=== PATIENT | female | born 1960 | race Two or more races ===

== ENCOUNTER 2024-03-01 19:12 | Inpatient (IN) | payer OTHER ==
[~2024-03-01] VITALS: Ht 162.6 cm; Wt 0.5 kg
[~2024-03-01 19:12] MED LIST: AMLODIPINE; CALTRATE 600+D1 EACH; CILOSTAZOL100 MG PO; COZAAR25 MG PO; FARXIGA10 MG PO; FOLIC ACID0.8 M1; GRALISE600 MG; HYDROCHLOROTHIA25 MG PO; INDERAL XL80 MG; KAPVAY0.1 MG; LANTUS SOL100 UNIT/1 SQ; OXYCODONE HCL10 M1; PEPCID AC20 MG PO; SIMVASTATIN80 MG; ZOFRAN8 MG PO
[2024-03-01 23:13] LABS: MEAN CELL VOLUME 96.3 fL (80.00-100.00); MEAN CORPUSCULAR HGB CONC 34.4 g/dl (32.0-36.0); PLATELET COUNT 177 K/uL (150-450); RED BLOOD COUNT 1.93 M/uL (4.00-6.00)
[2024-03-01 23:17] LABS: MEAN CORPUSCULAR HEMOGLOBIN 33.1 pg (27.00-32.0)
[2024-03-01 23:20] LABS: INR 0.99; PARTIAL THROMBOPLASTIN TIME 27.4 SECONDS (22.0-34.0); PROTHROMBIN TIME 10.4 SECONDS (9.0-11.5)
[2024-03-01 23:22] LABS: HEMOGLOBIN 6.4 g/dL (12.0-15.00)
[2024-03-01 23:23] LABS: HEMATOCRIT 18.6 % (36.0-45.00)
[2024-03-01 23:25] LABS: ALBUMIN 2.6 gm/dL (3.4-5.0); BILIRUBIN TOTAL 0.24 mg/dL (0.3-1.2); CALCIUM 7.9 mg/dL (8.5-10.1); CREATININE SERUM 2.44 mg/dL (0.55-1.02); GFR 20.14; GLOBULINA 4.3 G/DL (2.4-3.5); POTASSIUM 3.69 mEq/L (3.5-5.1); TOTAL PROTEIN 6.9 gm/dL (6.4-8.2)
[2024-03-02] MEDS ORDERED: CEFTRIAXONE SODIUM 2,000 MG in 0.9 % SODIUM CHLORIDE 100 ML IV SCH (00:05)
[2024-03-02] MEDS ORDERED: DEXTROSE 50 % IN WATER 0.5 G/ML DISP.SYRIN IV PRN (00:15)
[2024-03-02] MEDS ORDERED: ACETAMINOPHEN 500 MG GEL..CAP PO PRN (00:15)
[2024-03-02] MEDS ORDERED: FUROsemide 20 MG/2 ML VIAL IV SCH (00:15)
[2024-03-02] MEDS ORDERED: INSULIN LISPRO 1,000 UNIT/10 ML UNITS SUBCUTANEO PRN (00:15)
[2024-03-02] MEDS ORDERED: CEFTRIAXONE SODIUM 2,000 MG VIAL ONE (01:43)
[2024-03-02 01:57] LABS: URINE APPEARANCE Clear; URINE BILIRRUBIN Negative (NEGATIVE); URINE BLOOD Negative; URINE COLOR Yellow; URINE LEUKOCYTE Negative; URINE NITRATE Negative; URINE PROTEIN Trace (NEGATIVE); URINE UROBILINOGEN 0.2 E.U./dl
[2024-03-02 02:01] LABS: URINE BACTERIA 645.9 uL (0.0-1933); URINE EPITHELIAL CELLS 4.9 uL (0.0-38.8); URINE WBC 3.8 uL (0.0-23.2)
[2024-03-02 02:11] LABS: URINE GLUCOSE >=1000 MG/DL (NEGATIVE); URINE RBC 1.2 uL (0.0-20.8)
[2024-03-02] MEDS ORDERED: FARXIGA 10 MG PO SCH (09:00)
[2024-03-02] MEDS ORDERED: LOSARTAN POTASSIUM 25 MG TABLET PO SCH (09:00)
[2024-03-02] MEDS ORDERED: FAMOTIDINE/PF 20 MG in 0.9 % SODIUM CHLORIDE 8 ML IV PUSH SCH (09:00)
[2024-03-02] MEDS ORDERED: PROPRANOLOL HCL 20 MG TABLET PO SCH (09:00)
[2024-03-02] MEDS ORDERED: AMLODIPINE BESYLATE 5 MG TABLET PO SCH (12:00)
[2024-03-02] MEDS ORDERED: 0.9 % SODIUM CHLORIDE 1,000 ML IV SCH (23:45)
[2024-03-03 10:52] LABS: HEMATOCRIT 29.1 % (36.0-45.00); MEAN CELL VOLUME 89.6 fL (80.00-100.00); MEAN CORPUSCULAR HGB CONC 34.5 g/dl (32.0-36.0); PLATELET COUNT 146 K/uL (150-450); RED BLOOD COUNT 3.25 M/uL (4.00-6.00); RED CELL DISTRIBUTION WIDTH 20.6 % (11.5-14.5)
[2024-03-03 10:53] LABS: MEAN CORPUSCULAR HEMOGLOBIN 30.7 pg (27.00-32.0)
[2024-03-04] MEDS ORDERED: VANCOMYCIN HCL 1,000 MG VIAL IV NR (13:30)
[2024-03-04 16:57] LABS: BILIRUBIN TOTAL 0.36 mg/dL (0.3-1.2); CREATININE SERUM 2.15 mg/dL (0.55-1.02); GFR 23.3; GLOBULINA 4.1 G/DL (2.4-3.5); POTASSIUM 3.78 mEq/L (3.5-5.1); TOTAL PROTEIN 7.1 gm/dL (6.4-8.2)
[2024-03-05] MEDS ORDERED: VANCOMYCIN HCL 1,000 MG VIAL IV SCH (12:00)
[2024-03-06] MEDS ORDERED: OxyCODONE HCL/APAP UD (PERCOCET) PO PRN (13:00)
[2024-03-07 07:27] LABS: HEMATOCRIT 27.6 % (36.0-45.00); HEMOGLOBIN 9.7 g/dL (12.0-15.00); MEAN CELL VOLUME 87.9 fL (80.00-100.00); MEAN CORPUSCULAR HEMOGLOBIN 30.8 pg (27.00-32.0); RED BLOOD COUNT 3.14 M/uL (4.00-6.00)
[2024-03-07 08:31] LABS: ALBUMIN 2.7 gm/dL (3.4-5.0); CREATININE SERUM 1.85 mg/dL (0.55-1.02); GFR 27.71; PHOSPHOROUS 2.6 mg/dL (2.5-4.9); POTASSIUM 3.78 mEq/L (3.5-5.1)
[2024-03-07 08:57] LABS: CALCIUM 6.5 mg/dL (8.5-10.1)
[2024-03-07 09:00] LABS: PLATELET COUNT 125 K/uL (150-450)
[2024-03-08] MEDS ORDERED: FAMOtidine 20 MG TABLET PO SCH (09:00)
== END 2024-03-08 15:09 | disposition home or self-care (01) | DRG 181 ==
LOC: ER 19:12 → SURH 03-02
PROVIDERS: Emergency Medicine; General Practice; Internal Medicine Nephrology; ADMIT Internal Medicine; ATTEND Internal Medicine
PROC: 30233N1 Transfusion of Nonautologous Red Blood Cells into Peripheral Vein, Percutaneous Approach (ICD-10-PCS; principal; 2024-03-02)
DX: C34.91 Malignant neoplasm of unspecified part of right bronchus or lung (principal); C77.1 Secondary and unspecified malignant neoplasm of intrathoracic lymph nodes; C79.51 Secondary malignant neoplasm of bone; N17.9 Acute kidney failure, unspecified; L98.498 Non-pressure chronic ulcer of skin of other sites with other specified severity; L02.214 Cutaneous abscess of groin; L73.2 Hidradenitis suppurativa; D64.89 Other specified anemias; D63.1 Anemia in chronic kidney disease; D63.0 Anemia in neoplastic disease; I12.9 Hypertensive chronic kidney disease with stage 1 through stage 4 chronic kidney disease, or unspecified chronic kidney disease; E11.22 Type 2 diabetes mellitus with diabetic chronic kidney disease; N18.9 Chronic kidney disease, unspecified; Z79.4 Long term (current) use of insulin; Z87.891 Personal history of nicotine dependence; Z92.21 Personal history of antineoplastic chemotherapy; B95.1 Streptococcus, group B, as the cause of diseases classified elsewhere

== ENCOUNTER 2024-05-29 10:49 | Inpatient (IN) | payer OTHER ==
[~2024-05-29] VITALS: Ht 147.3 cm; Wt 63.5 kg
--- NOTE | 2024-05-29 11:16 | NUR ---
PACIENTE ALERTA Y ORIENTADA X 3. REFIERE DESDE KRYSTAL CON DOLOR EN LADO DERECHO DE LA [place] Y DESDE GONZALEZ VOMITOS. HOY VOMITOS X 7.
[2024-05-29] MEDS ORDERED: JARDIANCE25 MG PO (11:25)
[2024-05-29] MEDS ORDERED: 0.9 % SODIUM CHLORIDE 1,000 ML IV STA (12:13)
[2024-05-29] MEDS ORDERED: NIFEDIPINE 20 MG CAPSULE PO STA (12:13)
[2024-05-29] MEDS ORDERED: ORPHENADRINE CITRATE 30 MG/ML AMPUL IV STA (12:15)
[2024-05-29 12:44] LABS: HEMATOCRIT 30.9 % (36.0-45.00); HEMOGLOBIN 10.6 g/dL (12.0-15.00); MEAN CELL VOLUME 94.6 fL (80.00-100.00); MEAN CORPUSCULAR HEMOGLOBIN 32.3 pg (27.00-32.0); MEAN CORPUSCULAR HGB CONC 34.1 g/dl (32.0-36.0); PLATELET COUNT 408 K/uL (150-450); RED BLOOD COUNT 3.27 M/uL (4.00-6.00); RED CELL DISTRIBUTION WIDTH 17.9 % (11.5-14.5)
--- NOTE | 2024-05-29 13:05 | NUR ---
SE EDUCA PACIENTE Y FAMILIAR SOBRE EL [place] MEDICO Y ESTA REFIERE ENTENDER. SE CANALI[place] Y SE ADMINITRA MEDICAMENTOS. SE YOLANDA MUESTRAS DE LABORATORIOS Y SE ENTREGA ENVASE DE U/A. PENDINETE A CT SCAN DE KRISHNA
[2024-05-29 13:40] LABS: ALBUMIN 3.5 gm/dL (3.4-5.0); ALKALINE PHOSPHATASE 109 U/L (50-136); ALT/SGPT 19 U/L (12-78); ANION GAP 13 (10.0-20.0); AST/SGOT 17 U/L (15-37); BILIRUBIN TOTAL 0.31 mg/dL (0.3-1.2); BILIRUBIN,CONJUGATED < 0.10 mg/dL (0.0-0.2); BILIRUBIN,UNCONJUGATED 0.21 mg/dL (0.0-0.6); BLOOD UREA NITROGEN 55 mg/dL (7-18); BUN CREA RATIO 23 (7.0-25.0); CALCIUM 9.3 mg/dL (8.5-10.1); CARBON DIOXIDE 21 mEq/L (21-32); CHLORIDE 110 mmol/L (98-107); CREATININE SERUM 2.44 mg/dL (0.55-1.02); GFR 20.14; GLUCOSE FASTING 109 mg/dL (65-100); OSMOLALITY SERUM 295 MOSM/KG (275-295); POTASSIUM 4.34 mEq/L (3.5-5.1); SODIUM 140 mmol/L (136-145); TOTAL PROTEIN 8.3 gm/dL (6.4-8.2)
[2024-05-29] MEDS ORDERED: METOCLOPRAMIDE HCL 5 MG/ML VIAL IV ONE (13:45)
[2024-05-29] MEDS ORDERED: FAMOtidine 10 MG/ML (4ML VIAL) IV ONE (13:45)
[2024-05-29] MEDS ORDERED: KETOROLAC TROMETHAMINE 30 MG VIAL IV ONE (13:45)
[2024-05-29] MEDS ORDERED: ONDANSETRON HCL 2 MG/ML VIAL IV ONE ×2 (13:45→17:15)
[2024-05-29] MEDS ORDERED: PROMETHAZINE HCL 50 MG/ML AMPUL IM ONE (15:00)
[2024-05-29 15:16] LABS: PH,URINE 5.5 (5.0-8.0); URINE APPEARANCE Clear; URINE BILIRRUBIN Negative (NEGATIVE); URINE BLOOD Negative; URINE COLOR Yellow; URINE KETONE Negative (NEGATIVE); URINE LEUKOCYTE Negative; URINE NITRATE Negative; URINE PROTEIN 30 (NEGATIVE); URINE UROBILINOGEN 0.2 E.U./dl
[2024-05-29 15:20] LABS: URINE BACTERIA 327.4 uL (0.0-1933); URINE CAST 1.67 uL (0.0-1.40); URINE RBC 2.9 uL (0.0-20.8); URINE WBC 7.1 uL (0.0-23.2)
[2024-05-29 15:30] LABS: URINE GLUCOSE >=1000 MG/DL (NEGATIVE)
[2024-05-29] MEDS ORDERED: cloNIDine HCL 0.3 MG TABLET PO STA (15:31)
--- NOTE | 2024-05-29 15:39 | NUR ---
PACIENTE FEMENINA ALERTA Y ORIENTADA X3 EN TJ #13 CON BARANDAS ELEVADAS. AREA DE VENOPUNCION PATENTE EL DE EDEMA Y ENROJECIMIENTO. SE LE YOLANDA LOS SIGNOS VITALES Y SE LE ADMINISTRA MEDICAMENTOS GÓMEZ LAS ORDENES. SE LE [place] EN TODO MOMENTO PRIVACIDAD Y SEGURIDAD.
--- NOTE | 2024-05-29 17:08 | NUR ---
SE NOTIFICA A B/P:150/100MMHG. AL MOMENTO NO INDICA [place] MEDICO.
[2024-05-29] MEDS ORDERED: PANTOPRAZOLE SODIUM 40 MG/VIAL VIAL IV ONE (18:30)
[2024-05-29] MEDS ORDERED: ONDANSETRON HCL 4 MG in 0.9 % SODIUM CHLORIDE 50 ML IV PRN (20:45)
[2024-05-29] MEDS ORDERED: DEXTROSE 50 % IN WATER 0.5 G/ML DISP.SYRIN IV PRN (20:45)
[2024-05-29] MEDS ORDERED: ACETAMINOPHEN 325 MG TABLET PO PRN (20:45)
[2024-05-29] MEDS ORDERED: INSULIN LISPRO 1,000 UNIT/10 ML UNITS SUBCUTANEO PRN (20:45)
[2024-05-29] MEDS ORDERED: 0.9 % SODIUM CHLORIDE 1,000 ML IV SCH (20:45)
[2024-05-29] MEDS ORDERED: BUTALB/ACETAMINOPHEN/CAFFEINE 1 TAB TABLET PO PRN (20:45)
[2024-05-29 23:32] VITALS: BP 148/88; O2SAT 98
[2024-05-30 00:14] VITALS: BP 148/88
[2024-05-30] MEDS ORDERED: ONDANSETRON HCL 2 MG/ML VIAL IV PRN (05:00)
[2024-05-30] MEDS ORDERED: PANTOPRAZOLE SODIUM 40 MG/VIAL VIAL IV SCH ×3 (05:00→17:00)
[2024-05-30 08:05] LABS: TSH 0.073 uIU/mL (0.358-3.74)
[2024-05-30] MEDS ORDERED: AMLODIPINE BESYLATE 5 MG TABLET PO SCH (09:00)
[2024-05-30] MEDS ORDERED: LOSARTAN POTASSIUM 25 MG TABLET PO SCH (09:00)
[2024-05-30] MEDS ORDERED: CILOSTAZOL 100 MG TABLET PO SCH (09:00)
[2024-05-30 09:29] VITALS: BP 180/100; O2SAT 99
[2024-05-30] MEDS ORDERED: MORPHINE SULFATE 4 MG/ML VIAL IV PRN (10:00)
[2024-05-30] MEDS ORDERED: MORPHINE SULFATE 4 MG/ML CARTRIDGE IV PRN (11:00)
[2024-05-30 14:31] VITALS: BP 160/90
[2024-05-30 16:00] VITALS: BP 198/120; O2SAT 96
[2024-05-30] MEDS ORDERED: SIMVASTATIN 20 MG TABLET PO SCH (17:00)
[2024-05-30] MEDS ORDERED: INSULIN GLARGINE,HUM.REC.ANLOG 1,000 UNITS/10 ML UNITS SUBCUTANEO SCH (21:00)
[2024-05-31 00:12] VITALS: BP 160/100; O2SAT 98
[2024-05-31 08:45] VITALS: BP 160/98; O2SAT 99
[2024-05-31] MEDS ORDERED: SUCRALFATE 1 G TABLET PO SCH (09:00)
[2024-05-31 14:00] VITALS: BP 140/90
[2024-05-31 16:20] VITALS: BP 150/102; O2SAT 97
[2024-05-31] MEDS ORDERED: DEXAMETHASONE SODIUM PHOSPHATE 4 MG/ML VIAL IV SCH (17:00)
[2024-06-01 04:00] VITALS: BP 155/90; O2SAT 97
[2024-06-01] MEDS ORDERED: ENALAPRILAT DIHYDRATE 1.25 MG/ML VIAL IV PRN (06:30)
[2024-06-01 08:42] VITALS: BP 141/102; O2SAT 100
[2024-06-01] MEDS ORDERED: hydrALAZINE HCL 25 MG TABLET PO SCH (09:00)
[2024-06-01] MEDS ORDERED: NIFEDIPINE 30 MG TAB.SA.OSM PO SCH (09:00)
[2024-06-01 17:45] VITALS: BP 140/85; O2SAT 98
[2024-06-01] MEDS ORDERED: MORPHINE SULFATE 2 MG/ML CARTRIDGE IV PRN (22:00)
[2024-06-01] MEDS ORDERED: ACETAMINOPHEN 500 MG GEL..CAP PO PRN (22:15)
[2024-06-02 01:04] VITALS: BP 154/90; O2SAT 99
[2024-06-02 09:00] VITALS: BP 170/100; BP 93/54; O2SAT 100; O2SAT 99
[2024-06-02] MEDS ORDERED: hydrALAZINE HCL 50 MG TABLET PO SCH (09:00)
[2024-06-02] MEDS ORDERED: OxyCODONE HCL/APAP UD (PERCOCET) PO PRN (09:00)
[2024-06-02 16:00] VITALS: BP 169/106; O2SAT 99
[2024-06-02 19:00] VITALS: BP 150/100
[2024-06-02 21:00] VITALS: BP 180/101
[2024-06-02 23:00] VITALS: BP 159/106
[2024-06-02] MEDS ORDERED: DILTIAZEM HCL 30 MG TABLET PO ONE (23:15)
[2024-06-03 00:41] VITALS: BP 124/72; O2SAT 97
[2024-06-03] MEDS ORDERED: CLONIDINE HCL 0.1 MG TABLET PO SCH (01:00)
[2024-06-03] MEDS ORDERED: DILTIAZEM HCL 60 MG TABLET PO SCH (05:00)
[2024-06-03 06:44] VITALS: BP 156/82; O2SAT 97
[2024-06-03 06:46] LABS: MEAN CELL VOLUME 98.6 fL (80.00-100.00); MEAN CORPUSCULAR HEMOGLOBIN 32.9 pg (27.00-32.0); MEAN CORPUSCULAR HGB CONC 33.4 g/dl (32.0-36.0); PLATELET COUNT 268 K/uL (150-450); RED BLOOD COUNT 2.64 M/uL (4.00-6.00); RED CELL DISTRIBUTION WIDTH 18.2 % (11.5-14.5)
[2024-06-03 06:49] LABS: HEMOGLOBIN 8.7 g/dL (12.0-15.00)
[2024-06-03 07:04] LABS: ALBUMIN 2.8 gm/dL (3.4-5.0); BILIRUBIN TOTAL 0.22 mg/dL (0.3-1.2); CALCIUM 7.5 mg/dL (8.5-10.1); CREATININE SERUM 2.4 mg/dL (0.55-1.02); GFR 20.52; GLOBULINA 3.4 G/DL (2.4-3.5); MAGNESIUM 2.3 mg/dL (1.8-2.4); POTASSIUM 4.85 mEq/L (3.5-5.1); TOTAL PROTEIN 6.2 gm/dL (6.4-8.2)
[2024-06-03] MEDS ORDERED: CLONIDINE1 EACH TD (08:35)
[2024-06-03] MEDS ORDERED: DEXAMETHASONE4 MG PO (08:37)
[2024-06-03] MEDS ORDERED: PROTONIX40 MG PO (08:38)
[2024-06-03] MEDS ORDERED: AMLODIPINE BESYL5 MG PO (08:41)
[2024-06-03] MEDS ORDERED: AMLODIPINE BESYLATE 5 MG TABLET PO SCH (09:00)
[2024-06-03] MEDS ORDERED: cloNIDine 0.1 MG/24 H PATCH.TDWK TD SCH (09:00)
[2024-06-03] MEDS ORDERED: PROPRANOLOL HCL 20 MG TABLET PO SCH (09:00)
[2024-06-03 09:35] VITALS: BP 135/89; O2SAT 97
[2024-06-03] MEDS ORDERED: hydrALAZINE HCL 20 MG VIAL IV NR (17:00)
[2024-06-03] MEDS ORDERED: OxyCODONE HCL ER 10MG TAB (OxyCONTIN) PO ONE (18:00)
[2024-06-03 18:07] VITALS: BP 160/80; O2SAT 97
[2024-06-03] MEDS ORDERED: PERCOCET 5-3251 EACH PO (22:09)
[2024-06-04] MEDS ORDERED: PERCOCET 5-3251 EACH PO (13:32)
== END 2024-06-03 21:04 | disposition home or self-care (01) | DRG 392 ==
LOC: ER 10:50 → MEDI 20:54
PROVIDERS: General Practice; ADMIT Internal Medicine; ATTEND Internal Medicine
PROC: BW28ZZZ Computerized Tomography (CT Scan) of Head (ICD-10-PCS; principal; 2024-05-29)
PROC: BW21ZZZ Computerized Tomography (CT Scan) of Abdomen and Pelvis (ICD-10-PCS; 2024-05-31)
PROC: B030ZZZ Magnetic Resonance Imaging (MRI) of Brain (ICD-10-PCS; 2024-05-31)
PROC: BB24ZZZ Computerized Tomography (CT Scan) of Bilateral Lungs (ICD-10-PCS; 2024-05-31)
DX: K29.60 Other gastritis without bleeding (principal); N18.4 Chronic kidney disease, stage 4 (severe); C34.91 Malignant neoplasm of unspecified part of right bronchus or lung; E11.22 Type 2 diabetes mellitus with diabetic chronic kidney disease; I12.9 Hypertensive chronic kidney disease with stage 1 through stage 4 chronic kidney disease, or unspecified chronic kidney disease; L73.2 Hidradenitis suppurativa; D63.0 Anemia in neoplastic disease; E83.51 Hypocalcemia; E11.59 Type 2 diabetes mellitus with other circulatory complications; Z79.4 Long term (current) use of insulin; R63.0 Anorexia
CPT/HCPCS: 70551

== ENCOUNTER 2024-06-24 19:22 | Inpatient (IN) | payer OTHER ==
[~2024-06-24] VITALS: Ht 152.4 cm; Wt 72.6 kg
[~2024-06-24 19:22] MED LIST changes: +AMLODIPINE BESYL5 MG PO; +CLONIDINE1 EACH TD; +DEXAMETHASONE4 MG PO; +JARDIANCE25 MG PO; +PERCOCET 5-3251 EACH PO; +PROTONIX40 MG PO
[2024-06-24] MEDS ORDERED: DICYCLOMINE HCL 20 MG TABLET PO ONE (20:30)
[2024-06-24 20:55] LABS: HEMATOCRIT 37.2 % (36.0-45.00); MEAN CELL VOLUME 100.5 fL (80.00-100.00); MEAN CORPUSCULAR HEMOGLOBIN 32.4 pg (27.00-32.0); MEAN CORPUSCULAR HGB CONC 32.2 g/dl (32.0-36.0); PLATELET COUNT 150 K/uL (150-450); RED CELL DISTRIBUTION WIDTH 17.7 % (11.5-14.5)
[2024-06-24 21:24] LABS: ALBUMIN 2.5 gm/dL (3.4-5.0); BILIRUBIN TOTAL 0.58 mg/dL (0.3-1.2); CALCIUM 8.4 mg/dL (8.5-10.1); CREATININE SERUM 2.49 mg/dL (0.55-1.02); GFR 19.67; GLOBULINA 4.5 G/DL (2.4-3.5)
[2024-06-24 21:26] LABS: PH,URINE 5.5 (5.0-8.0); URINE APPEARANCE Clear; URINE BILIRRUBIN Negative (NEGATIVE); URINE BLOOD Negative; URINE COLOR Yellow; URINE KETONE Negative (NEGATIVE); URINE LEUKOCYTE Negative; URINE NITRATE Negative; URINE UROBILINOGEN 0.2 E.U./dl
[2024-06-24 21:29] LABS: POTASSIUM 7.24 mEq/L (3.5-5.1)
[2024-06-24 21:31] LABS: URINE BACTERIA 652.6 uL (0.0-1933); URINE CAST 3.05 uL (0.0-1.40); URINE RBC 8.2 uL (0.0-20.8); URINE WBC 6.9 uL (0.0-23.2)
[2024-06-24] MEDS ORDERED: SODIUM POLYSTYRENE SULFONATE 15 G/4 TSP TSP PO SCH (21:32)
[2024-06-24] MEDS ORDERED: 0.9 % SODIUM CHLORIDE 1,000 ML IV ONE (21:45)
[2024-06-24 22:05] LABS: URINE GLUCOSE >=1000 MG/DL (NEGATIVE); URINE PROTEIN 100 (NEGATIVE)
[2024-06-24 22:06] LABS: URINE CRYSTALS MODERATE /HPF; URINE MUCUS SCANT; URINE YEAST FEW /hpf
[2024-06-24 22:33] LABS: PARTIAL THROMBOPLASTIN TIME 26.8 SECONDS (22.0-34.0); PROTHROMBIN TIME 10.9 SECONDS (9.0-11.5)
[2024-06-25] MEDS ORDERED: SODIUM BICARBONATE 1 MEQ/ML DISP.SYRIN 50ML IV STA (00:45)
[2024-06-25] MEDS ORDERED: CALCIUM GLUCONATE 100 MG/ML VIAL IV STA (00:51)
[2024-06-25 00:55] LABS: ABG PH 7.345 (7.35-7.45); ABG PO2 84.2 mmHg (80-100); ABG pCO2 31.9 mmHg (35-45); BASE EXCESS -7.4 mmol/l; SaO2 95.3 %; allen test SATISFACTORY; o2 21 %; puncture site RADIAL LEFT
[2024-06-25] MEDS ORDERED: DEXTROSE 50 % IN WATER 0.5 G/ML VIAL IV ONE (01:00)
[2024-06-25] MEDS ORDERED: INSULIN REGULAR, HUMAN 1,000 UNIT/10 ML UNITS IV ONE (01:00)
[2024-06-25 03:10] LABS: CALCIUM 8.5 mg/dL (8.5-10.1); CREATININE SERUM 2.86 mg/dL (0.55-1.02); GFR 16.76
[2024-06-25 03:35] LABS: POTASSIUM 7.02 mEq/L (3.5-5.1)
[2024-06-25] MEDS ORDERED: CALCIUM GLUCONATE 100 MG/ML VIAL IV ONE (11:00)
[2024-06-25] MEDS ORDERED: ALBUTEROL SULFATE 3 ML/2.5 MG AMPUL.NEB IH SCH ×2 (11:00→13:00)
[2024-06-25] MEDS ORDERED: 0.9 % SODIUM CHLORIDE 1,000 ML IV SCH (11:45)
[2024-06-25] MEDS ORDERED: hydrALAZINE HCL 20 MG VIAL IV SCH (12:00)
[2024-06-25] MEDS ORDERED: MORPHINE SULFATE 50 MG in 0.9 % SODIUM CHLORIDE 50 ML IV SCH (12:00)
[2024-06-25] MEDS ORDERED: FLUCONAZOLE IN NACL,ISO-OSM 200 MG/100 ML PIGGYBAG IV ONE (12:15)
[2024-06-25 12:28] LABS: ABG PH 7.347 (7.35-7.45); ABG pCO2 34.7 mmHg (35-45)
[2024-06-25 12:29] LABS: ABG PO2 72.8 mmHg (80-100); BASE EXCESS -6.2 mmol/l; BICARBONATE 18.6 mmol/l (23-25); SaO2 93.1 %; Tco2 19.6 mmol/l; allen test SATISFACTORY; o2 21 %; puncture site RADIAL LEFT
[2024-06-25 12:31] LABS: CALCIUM 7.9 mg/dL (8.5-10.1); CREATININE SERUM 3.33 mg/dL (0.55-1.02); GFR 14.06
[2024-06-25 12:37] LABS: POTASSIUM 7.42 mEq/L (3.5-5.1)
[2024-06-25] MEDS ORDERED: HEPARIN SODIUM,PORCINE 1,000 UNITS/ML VIAL IV SCH (13:15)
[2024-06-25] MEDS ORDERED: HEPARIN SODIUM,PORCINE 1,000 UNITS/ML VIAL SPEPROC ONE (13:15)
[2024-06-25] MEDS ORDERED: PIPERACILLIN/TAZOBACTAM SODIUM 2.25 GM in DEXTROSE 5 % IN WATER 50 ML IV SCH (14:00)
[2024-06-25 14:36] VITALS: BP 108/79; O2SAT 97
[2024-06-25 14:39] VITALS: BP 108/79
[2024-06-25 15:45] VITALS: BP 111/70; O2SAT 97
[2024-06-25 17:30] VITALS: BP 120/75; O2SAT 97
[2024-06-25 21:20] VITALS: BP 136/81; O2SAT 98
[2024-06-25 22:50] VITALS: BP 119/81; O2SAT 98
[2024-06-26] VITALS (18 sets, daily range): BP systolic 52–124; BP diastolic 42–80; O2SAT 89–100
[2024-06-26 07:18] LABS: INR 1.04; PARTIAL THROMBOPLASTIN TIME 30.8 SECONDS (22.0-34.0); PROTHROMBIN TIME 11.3 SECONDS (9.0-11.5)
[2024-06-26 07:30] LABS: HEMATOCRIT 32.3 % (36.0-45.00); HEMOGLOBIN 10.5 g/dL (12.0-15.00); MEAN CELL VOLUME 98.9 fL (80.00-100.00); MEAN CORPUSCULAR HEMOGLOBIN 32.2 pg (27.00-32.0); MEAN CORPUSCULAR HGB CONC 32.5 g/dl (32.0-36.0); RED BLOOD COUNT 3.27 M/uL (4.00-6.00); RED CELL DISTRIBUTION WIDTH 17.1 % (11.5-14.5)
[2024-06-26 07:42] LABS: PLATELET COUNT 84 K/uL (150-450)
[2024-06-26 08:06] LABS: ERYTHROCYTE SEDIMENTATION RATE 1 mm/hr
[2024-06-26 08:15] LABS: PH,URINE 5.5 (5.0-8.0); URINE APPEARANCE Cloudy; URINE BILIRRUBIN Negative (NEGATIVE); URINE BLOOD Large; URINE COLOR Yellow; URINE KETONE Trace (NEGATIVE); URINE LEUKOCYTE Trace; URINE NITRATE Negative; URINE UROBILINOGEN 0.2 E.U./dl
[2024-06-26 08:16] LABS: URINE BACTERIA 269.6 uL (0.0-1933); URINE CAST 2.59 uL (0.0-1.40); URINE EPITHELIAL CELLS 5.4 uL (0.0-38.8); URINE RBC 687.5 uL (0.0-20.8); URINE WBC 2.7 uL (0.0-23.2)
[2024-06-26 08:19] LABS: COL EPI 130 SECONDS (82-175)
[2024-06-26 08:21] LABS: ALBUMIN 1.8 gm/dL (3.4-5.0); BILIRUBIN TOTAL 0.6 mg/dL (0.3-1.2); BILIRUBIN,CONJUGATED 0.31 mg/dL (0.0-0.2); BILIRUBIN,UNCONJUGATED 0.29 mg/dL (0.0-0.6); CALCIUM 7.9 mg/dL (8.5-10.1); CREATININE SERUM 2.65 mg/dL (0.55-1.02); GFR 18.31; MAGNESIUM 2.2 mg/dL (1.8-2.4); POTASSIUM 5.62 mEq/L (3.5-5.1); T4 FREE 1.13 NG/ML (0.76-1.46); TOTAL PROTEIN 5.8 gm/dL (6.4-8.2)
[2024-06-26 08:22] LABS: COL EPI 130 SECONDS (82-175)
[2024-06-26 08:23] LABS: URINE GLUCOSE 100 MG/DL (NEGATIVE); URINE PROTEIN 300 (NEGATIVE)
[2024-06-26 08:24] LABS: C-REACTIVE PROTEIN 43.3 MG/DL (0.00-0.29); TSH 0.018 uIU/mL (0.358-3.74)
[2024-06-26] MEDS ORDERED: AMIODARONE HCL 50 MG/ML AMPUL IV ONE (10:00)
[2024-06-26] MEDS ORDERED: PANTOPRAZOLE SODIUM 80 MG in 0.9 % SODIUM CHLORIDE 100 ML IV SCH (10:00)
[2024-06-26] MEDS ORDERED: AMIODARONE HCL 50 MG/ML AMPUL IV SCH (10:00)
[2024-06-26] MEDS ORDERED: CALCIUM GLUCONATE 100 MG/ML VIAL IV ONE (10:15)
[2024-06-26] MEDS ORDERED: MORPHINE SULFATE IV SCH (12:00)
[2024-06-26] MEDS ORDERED: SODIUM CHLORIDE 0.9% IV SCH (12:00)
[2024-06-26] MEDS ORDERED: LEVALBUTEROL HCL 0.63 MG/3 ML SOLUTION IH SCH (13:00)
[2024-06-26] MEDS ORDERED: 0.9 % SODIUM CHLORIDE 500 ML IV ONE (17:00)
[2024-06-26] MEDS ORDERED: IPRATROPIUM BROMIDE 0.5 MG/2.5 ML AMPUL.NEB IH SCH (17:19)
[2024-06-26] MEDS ORDERED: HYDROCORTISONE SODIUM SUCC/PF 100 MG VIAL IV ONE (17:45)
[2024-06-26 18:41] LABS: ABG PH 7.276 (7.35-7.45); ABG PO2 117.7 mmHg (80-100); BASE EXCESS -8.4 mmol/l; BICARBONATE 17.8 mmol/l (23-25); SaO2 97.7 %; allen test SATISFACTORY; puncture site RADIAL LEFT
[2024-06-26 18:42] LABS: o2 50 %
[2024-06-26 18:43] LABS: ABG pCO2 39.1 mmHg (35-45)
[2024-06-26] MEDS ORDERED: PIPERACILLIN/TAZOBACTAM SODIUM 2.25 GM in DEXTROSE 5 % IN WATER 50 ML IV SCH (21:00)
[2024-06-26] MEDS ORDERED: HYDROCORTISONE SODIUM SUCC/PF 100 MG VIAL IV STA (21:06)
[2024-06-27] VITALS (16 sets, daily range): BP systolic 65–172; BP diastolic 41–94; O2SAT 96–100
[2024-06-27] MEDS ORDERED: HYDROCORTISONE SODIUM SUCC/PF 100 MG VIAL IV SCH
[2024-06-27] MEDS ORDERED: NOREPINEPHRINE BITARTRATE 4 MG in DEXTROSE 5 % IN WATER 250 ML IV SCH (03:00)
[2024-06-27] MEDS ORDERED: DEXAMETHASONE SODIUM PHOSPHATE 4 MG/ML VIAL IV STA (04:41)
[2024-06-27] MEDS ORDERED: DEXAMETHASONE SODIUM PHOSPHATE 4 MG/ML VIAL IV SCH (05:00)
[2024-06-27] MEDS ORDERED: SODIUM CHLORIDE 0.9% IV SCH (07:45)
[2024-06-27] MEDS ORDERED: MORPHINE SULFATE IV SCH (07:45)
[2024-06-27 08:54] LABS: HEMATOCRIT 27.4 % (36.0-45.00); HEMOGLOBIN 9.1 g/dL (12.0-15.00); MEAN CELL VOLUME 99.8 fL (80.00-100.00); RED BLOOD COUNT 2.75 M/uL (4.00-6.00); RED CELL DISTRIBUTION WIDTH 17.9 % (11.5-14.5)
[2024-06-27 08:59] LABS: PLATELET COUNT 77 K/uL (150-450)
[2024-06-27 09:41] LABS: ALBUMIN 1.6 gm/dL (3.4-5.0); BILIRUBIN TOTAL 0.66 mg/dL (0.3-1.2); CALCIUM 7.7 mg/dL (8.5-10.1); GLOBULINA 4.8 G/DL (2.4-3.5); MAGNESIUM 2.6 mg/dL (1.8-2.4); TOTAL PROTEIN 6.4 gm/dL (6.4-8.2)
[2024-06-27 10:02] LABS: GFR 9.4
[2024-06-27 10:03] LABS: CREATININE SERUM 4.72 mg/dL (0.55-1.02); POTASSIUM 6.35 mEq/L (3.5-5.1)
[2024-06-28] VITALS (12 sets, daily range): BP systolic 113–159; BP diastolic 80–91; O2SAT 99–100
[2024-06-28 01:36] LABS: HEMATOCRIT 33.2 % (36.0-45.00); MEAN CELL VOLUME 93.1 fL (80.00-100.00); MEAN CORPUSCULAR HGB CONC 33.7 g/dl (32.0-36.0); PLATELET COUNT 57 K/uL (150-450); RED BLOOD COUNT 3.57 M/uL (4.00-6.00); RED CELL DISTRIBUTION WIDTH 19.6 % (11.5-14.5)
[2024-06-28 01:37] LABS: HEMOGLOBIN 11.2 g/dL (12.0-15.00); MEAN CORPUSCULAR HEMOGLOBIN 31.3 pg (27.00-32.0)
[2024-06-28 08:18] LABS: HEMATOCRIT 33.4 % (36.0-45.00); HEMOGLOBIN 11.1 g/dL (12.0-15.00); MEAN CORPUSCULAR HEMOGLOBIN 31.3 pg (27.00-32.0); MEAN CORPUSCULAR HGB CONC 33.3 g/dl (32.0-36.0); RED BLOOD COUNT 3.55 M/uL (4.00-6.00); RED CELL DISTRIBUTION WIDTH 19.1 % (11.5-14.5)
[2024-06-28 08:32] LABS: ALBUMIN 1.9 gm/dL (3.4-5.0); BILIRUBIN TOTAL 1.31 mg/dL (0.3-1.2); CALCIUM 7.7 mg/dL (8.5-10.1); CREATININE SERUM 3.27 mg/dL (0.55-1.02); GFR 14.36; GLOBULINA 4.1 G/DL (2.4-3.5); POTASSIUM 5.19 mEq/L (3.5-5.1)
[2024-06-28 09:19] LABS: PLATELET COUNT 59 K/uL (150-450)
[2024-06-28 09:46] LABS: MANUAL PLATELET COUNT 92
[2024-06-28 14:59] LABS: COL EPI 283 SECONDS (82-175)
[2024-06-29] VITALS (13 sets, daily range): BP systolic 111–180; BP diastolic 62–95; O2SAT 100
[2024-06-29 06:58] LABS: HEMATOCRIT 32.6 % (36.0-45.00); MEAN CELL VOLUME 93.9 fL (80.00-100.00); MEAN CORPUSCULAR HGB CONC 33.2 g/dl (32.0-36.0); RED BLOOD COUNT 3.47 M/uL (4.00-6.00); RED CELL DISTRIBUTION WIDTH 19.4 % (11.5-14.5)
[2024-06-29 06:59] LABS: HEMOGLOBIN 10.8 g/dL (12.0-15.00); MEAN CORPUSCULAR HEMOGLOBIN 31.1 pg (27.00-32.0); PLATELET COUNT 45 K/uL (150-450)
[2024-06-29 07:03] LABS: BILIRUBIN TOTAL 0.66 mg/dL (0.3-1.2); CALCIUM 7.6 mg/dL (8.5-10.1); GFR 9.94; GLOBULINA 4.9 G/DL (2.4-3.5); MAGNESIUM 2.5 mg/dL (1.8-2.4); POTASSIUM 4.83 mEq/L (3.5-5.1); TOTAL PROTEIN 6.9 gm/dL (6.4-8.2)
[2024-06-29 07:29] LABS: CREATININE SERUM 4.5 mg/dL (0.55-1.02)
[2024-06-29 09:36] LABS: COL ADP > 300 SECONDS (56-102); COL EPI > 300 SECONDS (82-175)
[2024-06-29 15:59] LABS: HEMOGLOBIN 11.3 g/dL (12.0-15.00); MEAN CELL VOLUME 93.3 fL (80.00-100.00); MEAN CORPUSCULAR HEMOGLOBIN 31.1 pg (27.00-32.0); MEAN CORPUSCULAR HGB CONC 33.3 g/dl (32.0-36.0); RED BLOOD COUNT 3.64 M/uL (4.00-6.00); RED CELL DISTRIBUTION WIDTH 19.6 % (11.5-14.5)
[2024-06-29 16:00] LABS: PLATELET COUNT 58 K/uL (150-450)
[2024-06-29] MEDS ORDERED: ANIDULAFUNGIN 100 MG VIAL IV NR (16:00)
[2024-06-29] MEDS ORDERED: MEROPENEM 500 MG/VIAL VIAL IV SCH (17:00)
[2024-06-29] MEDS ORDERED: HEPARIN SODIUM,PORCINE 5,000 UNITS/ML VIAL IV ONE (17:45)
[2024-06-29] MEDS ORDERED: SODIUM CHLORIDE 0.9% IV SCH (22:45)
[2024-06-29] MEDS ORDERED: 0.9 % SODIUM CHLORIDE 1,000 ML IV SCH (22:45)
[2024-06-29] MEDS ORDERED: MORPHINE SULFATE IV SCH (22:45)
[2024-06-30] VITALS (24 sets, daily range): BP systolic 115–151; BP diastolic 73–99; O2SAT 99–100
[2024-06-30] MEDS ORDERED: POLYVINYL ALCOHOL 15 ML DROPS OP SCH (00:03)
[2024-06-30 00:10] LABS: HEMATOCRIT 33.9 % (36.0-45.00); HEMOGLOBIN 11.6 g/dL (12.0-15.00); MEAN CELL VOLUME 91.2 fL (80.00-100.00); MEAN CORPUSCULAR HEMOGLOBIN 31.2 pg (27.00-32.0); MEAN CORPUSCULAR HGB CONC 34.2 g/dl (32.0-36.0); RED BLOOD COUNT 3.72 M/uL (4.00-6.00); RED CELL DISTRIBUTION WIDTH 21.7 % (11.5-14.5)
[2024-06-30 00:11] LABS: PLATELET COUNT 51 K/uL (150-450)
[2024-06-30] MEDS ORDERED: CHLORHEXIDINE GLUCONATE 15ML BRUSH KIT MM SCH (01:00)
[2024-06-30 01:59] LABS: ABG PH 7.254 (7.35-7.45); ABG PO2 201.4 mmHg (80-100); ABG pCO2 33.1 mmHg (35-45); BASE EXCESS -11.6 mmol/l; BICARBONATE 14.3 mmol/l (23-25); SaO2 99.5 %; Tco2 15.3 mmol/l; o2 50 %; puncture site ARTERIAL LINE
[2024-06-30] MEDS ORDERED: DEXTROSE 50 % IN WATER 0.5 G/ML DISP.SYRIN IV PRN (05:15)
[2024-06-30] MEDS ORDERED: INSULIN LISPRO 1,000 UNIT/10 ML UNITS SUBCUTANEO PRN (05:15)
[2024-06-30 06:47] LABS: HEMATOCRIT 27.3 % (36.0-45.00); MEAN CORPUSCULAR HEMOGLOBIN 31.1 pg (27.00-32.0); MEAN CORPUSCULAR HGB CONC 34.2 g/dl (32.0-36.0); RED BLOOD COUNT 2.99 M/uL (4.00-6.00); RED CELL DISTRIBUTION WIDTH 19.9 % (11.5-14.5)
[2024-06-30 06:51] LABS: PLATELET COUNT 65 K/uL (150-450)
[2024-06-30 06:52] LABS: HEMOGLOBIN 9.3 g/dL (12.0-15.00)
[2024-06-30 10:55] LABS: ABG PH 7.268 (7.35-7.45)
[2024-06-30 10:56] LABS: ABG PO2 259.4 mmHg (80-100); ABG pCO2 34.9 mmHg (35-45); BASE EXCESS -10.3 mmol/l; BICARBONATE 15.6 mmol/l (23-25); SaO2 99.8 %; Tco2 16.7 mmol/l
[2024-06-30 10:57] LABS: allen test SATISFACTORY; o2 50 %; puncture site RADIAL RIGHT
[2024-06-30 10:59] LABS: ALBUMIN 1.9 gm/dL (3.4-5.0); BILIRUBIN TOTAL 2.56 mg/dL (0.3-1.2); GLOBULINA 3.2 G/DL (2.4-3.5); MAGNESIUM 2.5 mg/dL (1.8-2.4); POTASSIUM 5.38 mEq/L (3.5-5.1); TOTAL PROTEIN 5.1 gm/dL (6.4-8.2)
[2024-06-30 11:05] LABS: GFR 8.09
[2024-06-30 11:07] LABS: CREATININE SERUM 5.38 mg/dL (0.55-1.02)
[2024-06-30 11:08] LABS: CALCIUM 6.2 mg/dL (8.5-10.1); PHOSPHOROUS 9.9 mg/dL (2.5-4.9)
[2024-06-30] MEDS ORDERED: DEXAMETHASONE SODIUM PHOSPHATE 4 MG/ML VIAL IV SCH (13:00)
[2024-06-30 15:47] LABS: HEMATOCRIT 32.3 % (36.0-45.00); HEMOGLOBIN 10.8 g/dL (12.0-15.00); MEAN CORPUSCULAR HEMOGLOBIN 30.4 pg (27.00-32.0); MEAN CORPUSCULAR HGB CONC 33.4 g/dl (32.0-36.0); RED BLOOD COUNT 3.55 M/uL (4.00-6.00)
[2024-06-30 15:51] LABS: PLATELET COUNT 52 K/uL (150-450)
[2024-06-30] MEDS ORDERED: ANIDULAFUNGIN 100 MG VIAL IV SCH (17:00)
[2024-06-30] MEDS ORDERED: PANTOPRAZOLE SODIUM 80 MG in 0.9 % SODIUM CHLORIDE 100 ML IV SCH (18:15)
[2024-07-01] VITALS (23 sets, daily range): BP systolic 106–168; BP diastolic 65–98; O2SAT 100
[2024-07-01] MEDS ORDERED: MIDAZOLAM HCL 50 MG in 0.9 % SODIUM CHLORIDE 50 ML IV SCH (02:45)
[2024-07-01] MEDS ORDERED: SODIUM BICARBONATE 1 MEQ/ML DISP.SYRIN 50ML IV ONE ×2 (03:15→08:30)
[2024-07-01 05:33] LABS: ABG PH 7.131 (7.35-7.45); ABG PO2 261.2 mmHg (80-100); ABG pCO2 52.5 mmHg (35-45); BASE EXCESS -12.3 mmol/l; BICARBONATE 17.1 mmol/l (23-25); SaO2 99.6 %; Tco2 18.7 mmol/l
[2024-07-01 05:34] LABS: allen test SATISFACTORY; o2 40 %; puncture site RADIAL RIGHT
[2024-07-01 06:45] LABS: HEMATOCRIT 28.3 % (36.0-45.00); HEMOGLOBIN 9.6 g/dL (12.0-15.00); MEAN CELL VOLUME 90.6 fL (80.00-100.00); MEAN CORPUSCULAR HEMOGLOBIN 30.6 pg (27.00-32.0); MEAN CORPUSCULAR HGB CONC 33.8 g/dl (32.0-36.0); RED BLOOD COUNT 3.13 M/uL (4.00-6.00); RED CELL DISTRIBUTION WIDTH 19.5 % (11.5-14.5)
[2024-07-01 06:47] LABS: PLATELET COUNT 39 K/uL (150-450)
[2024-07-01 08:54] LABS: ABG PO2 287.1 mmHg (80-100); ABG pCO2 55.2 mmHg (35-45); BASE EXCESS -11.8 mmol/l; BICARBONATE 17.8 mmol/l (23-25); SaO2 99.7 %; Tco2 19.5 mmol/l
[2024-07-01] MEDS ORDERED: SOD FERRIC GLUC COMPLX/SUCROSE 62.5 MG/5 ML AMPUL IV SCH (09:00)
[2024-07-01] MEDS ORDERED: SODIUM BICARBONATE 1 MEQ/ML DISP.SYRIN 50ML IV SCH (09:15)
[2024-07-01] MEDS ORDERED: SODIUM BICARBONATE 150 MEQ in DEXTROSE 5 % IN WATER 1,000 ML IV SCH ×2 (09:30→09:45)
[2024-07-01 09:45] LABS: MAGNESIUM 2.6 mg/dL (1.8-2.4); POTASSIUM 5.88 mEq/L (3.5-5.1)
[2024-07-01 09:56] LABS: ABG PH 7.126 (7.35-7.45); allen test SATISFACTORY; o2 50 %; puncture site RADIAL LEFT
[2024-07-01 10:04] LABS: GFR 6.89
[2024-07-01 10:07] LABS: CREATININE SERUM 6.18 mg/dL (0.55-1.02); PHOSPHOROUS 11.4 mg/dL (2.5-4.9)
[2024-07-01 12:29] LABS: INR 1.11
[2024-07-01 12:44] LABS: PARTIAL THROMBOPLASTIN TIME 39.9 SECONDS (22.0-34.0)
[2024-07-01] MEDS ORDERED: 0.9 % SODIUM CHLORIDE 1,000 ML IV SCH (17:00)
[2024-07-01 23:34] LABS: HEMATOCRIT 30.7 % (36.0-45.00); HEMOGLOBIN 10.5 g/dL (12.0-15.00); MEAN CELL VOLUME 88.8 fL (80.00-100.00); MEAN CORPUSCULAR HEMOGLOBIN 30.5 pg (27.00-32.0); MEAN CORPUSCULAR HGB CONC 34.3 g/dl (32.0-36.0); RED BLOOD COUNT 3.45 M/uL (4.00-6.00); RED CELL DISTRIBUTION WIDTH 17.5 % (11.5-14.5)
[2024-07-01 23:35] LABS: PLATELET COUNT 35 K/uL (150-450)
[2024-07-02] VITALS (18 sets, daily range): BP systolic 146–184; BP diastolic 80–99; O2SAT 99–100
[2024-07-02 08:21] LABS: ABG PH 7.498 (7.35-7.45); ABG PO2 176.4 mmHg (80-100); ABG pCO2 25.9 mmHg (35-45); BASE EXCESS -1.8 mmol/l; BICARBONATE 19.6 mmol/l (23-25); SaO2 99.7 %; Tco2 20.4 mmol/l
[2024-07-02 08:38] LABS: HEMATOCRIT 30.4 % (36.0-45.00); HEMOGLOBIN 10.5 g/dL (12.0-15.00); MEAN CELL VOLUME 88.5 fL (80.00-100.00); MEAN CORPUSCULAR HEMOGLOBIN 30.6 pg (27.00-32.0); MEAN CORPUSCULAR HGB CONC 34.6 g/dl (32.0-36.0); RED BLOOD COUNT 3.43 M/uL (4.00-6.00); RED CELL DISTRIBUTION WIDTH 17.4 % (11.5-14.5)
[2024-07-02 08:39] LABS: allen test SATISFACTORY; puncture site RADIAL LEFT
[2024-07-02 08:40] LABS: o2 40 %
[2024-07-02 09:02] LABS: PLATELET COUNT 38 K/uL (150-450)
[2024-07-02 09:21] LABS: CALCIUM 7.1 mg/dL (8.5-10.1); CREATININE SERUM 3.74 mg/dL (0.55-1.02); GFR 12.3; MAGNESIUM 1.9 mg/dL (1.8-2.4); PHOSPHOROUS 5.2 mg/dL (2.5-4.9); POTASSIUM 3.52 mEq/L (3.5-5.1)
[2024-07-02] MEDS ORDERED: SODIUM CHLORIDE 0.9% IV SCH (10:15)
[2024-07-02] MEDS ORDERED: SODIUM BICARBONATE IV SCH (10:15)
[2024-07-02] MEDS ORDERED: AMLODIPINE BESYLATE 5 MG TABLET PO SCH (19:28)
[2024-07-02] MEDS ORDERED: ENALAPRILAT DIHYDRATE 1.25 MG/ML VIAL IV PRN (19:45)
[2024-07-02] MEDS ORDERED: METOPROLOL TARTRATE 5MG/5ML AMPUL IV ONE (19:45)
[2024-07-02] MEDS ORDERED: AMINO ACIDS 4.25 %/DEXTROSE 5% 1,000 ML PERIFERAL SCH (20:00)
[2024-07-02 21:19] LABS: HEMATOCRIT 27.7 % (36.0-45.00); HEMOGLOBIN 9.8 g/dL (12.0-15.00); MEAN CORPUSCULAR HEMOGLOBIN 31.2 pg (27.00-32.0); MEAN CORPUSCULAR HGB CONC 35.5 g/dl (32.0-36.0); RED BLOOD COUNT 3.15 M/uL (4.00-6.00)
[2024-07-02 21:20] LABS: PLATELET COUNT 63 K/uL (150-450)
[2024-07-02] MEDS ORDERED: MORPHINE SULFATE 4 MG/ML VIAL IV ONE (21:30)
[2024-07-02] MEDS ORDERED: ORPHENADRINE CITRATE 30 MG/ML AMPUL IM ONE (21:30)
[2024-07-03] VITALS (24 sets, daily range): BP systolic 152–186; BP diastolic 77–98; O2SAT 99–100
[2024-07-03] MEDS ORDERED: ORPHENADRINE CITRATE 30 MG/ML AMPUL IM ONE (06:00)
[2024-07-03] MEDS ORDERED: MORPHINE SULFATE 4 MG/ML CARTRIDGE IV ONE (06:00)
[2024-07-03 08:06] LABS: HEMATOCRIT 29.5 % (36.0-45.00); HEMOGLOBIN 10.1 g/dL (12.0-15.00); MEAN CELL VOLUME 89.8 fL (80.00-100.00); MEAN CORPUSCULAR HEMOGLOBIN 30.7 pg (27.00-32.0); MEAN CORPUSCULAR HGB CONC 34.2 g/dl (32.0-36.0); RED BLOOD COUNT 3.29 M/uL (4.00-6.00); RED CELL DISTRIBUTION WIDTH 18.1 % (11.5-14.5)
[2024-07-03 08:12] LABS: PLATELET COUNT 56 K/uL (150-450)
[2024-07-03 08:27] LABS: ALBUMIN 1.9 gm/dL (3.4-5.0); BILIRUBIN TOTAL 0.67 mg/dL (0.3-1.2); GFR 9.81; GLOBULINA 3.1 G/DL (2.4-3.5); PHOSPHOROUS 6.8 mg/dL (2.5-4.9); POTASSIUM 3.77 mEq/L (3.5-5.1)
[2024-07-03 08:31] LABS: CREATININE SERUM 4.55 mg/dL (0.55-1.02)
[2024-07-03] MEDS ORDERED: CALCIUM GLUCONATE 100 MG/ML VIAL IV ONE (09:45)
[2024-07-03 10:52] LABS: ABG pCO2 39.7 mmHg (35-45)
[2024-07-03 10:53] LABS: BASE EXCESS -1.8 mmol/l; BICARBONATE 23.1 mmol/l (23-25); Tco2 24.3 mmol/l
[2024-07-03 10:54] LABS: allen test SATISFACTORY; o2 35 %; puncture site RADIAL RIGHT
[2024-07-03] MEDS ORDERED: MORPHINE SULFATE 4 MG/ML CARTRIDGE IV PRN ×2 (11:30→12:54)
[2024-07-03 12:59] LABS: PLT IN CITRATE 44 K/uL (150-450)
[2024-07-03] MEDS ORDERED: CALCIUM GLUCONATE 100 MG/ML VIAL IV NR (13:00)
[2024-07-03 13:11] LABS: PLATELET COUNT 44 K/uL (150-450)
[2024-07-03] MEDS ORDERED: AMINO ACIDS 4.25 %/DEXTROSE 5% 1,000 ML PERIFERAL SCH (17:00)
[2024-07-04] VITALS (20 sets, daily range): BP systolic 135–180; BP diastolic 82–103; O2SAT 100
[2024-07-04] MEDS ORDERED: LABETALOL HCL 100 MG/20 ML ML IV STA (00:32)
[2024-07-04 06:40] LABS: HEMATOCRIT 30.6 % (36.0-45.00); HEMOGLOBIN 10.4 g/dL (12.0-15.00); MEAN CELL VOLUME 89.6 fL (80.00-100.00); MEAN CORPUSCULAR HEMOGLOBIN 30.5 pg (27.00-32.0); MEAN CORPUSCULAR HGB CONC 34.1 g/dl (32.0-36.0); RED BLOOD COUNT 3.42 M/uL (4.00-6.00); RED CELL DISTRIBUTION WIDTH 17.8 % (11.5-14.5)
[2024-07-04 06:45] LABS: PLATELET COUNT 54 K/uL (150-450)
[2024-07-04] MEDS ORDERED: MORPHINE SULFATE IV SCH (07:00)
[2024-07-04] MEDS ORDERED: SODIUM CHLORIDE 0.9% IV SCH (07:00)
[2024-07-04 07:19] LABS: ALBUMIN 1.8 gm/dL (3.4-5.0); BILIRUBIN TOTAL 0.54 mg/dL (0.3-1.2); CALCIUM 7.4 mg/dL (8.5-10.1); GFR 9.13; GLOBULINA 3.3 G/DL (2.4-3.5); MAGNESIUM 2.1 mg/dL (1.8-2.4); POTASSIUM 3.57 mEq/L (3.5-5.1); TOTAL PROTEIN 5.1 gm/dL (6.4-8.2)
[2024-07-04 07:41] LABS: CREATININE SERUM 4.84 mg/dL (0.55-1.02)
[2024-07-04 08:24] LABS: PLATELET ESTIMATE DECREASED (NORMAL)
[2024-07-04] MEDS ORDERED: MORPHINE SULFATE 2 MG/ML CARTRIDGE IV ONE (12:45)
[2024-07-04 12:50] LABS: ABG PH 7.361 (7.35-7.45); ABG pCO2 42.3 mmHg (35-45)
[2024-07-04 12:51] LABS: ABG PO2 147.6 mmHg (80-100); BICARBONATE 23.4 mmol/l (23-25); SaO2 99.1 %; Tco2 24.7 mmol/l; allen test SATISFACTORY; o2 35 %; puncture site RADIAL RIGHT
[2024-07-05] VITALS (25 sets, daily range): BP systolic 146–180; BP diastolic 88–104; O2SAT 99–100
[2024-07-05 09:37] LABS: CALCIUM 8.1 mg/dL (8.5-10.1); CREATININE SERUM 3.72 mg/dL (0.55-1.02); GFR 12.38; MAGNESIUM 1.9 mg/dL (1.8-2.4); PHOSPHOROUS 5.9 mg/dL (2.5-4.9); POTASSIUM 3.38 mEq/L (3.5-5.1)
[2024-07-05 11:04] LABS: HEMATOCRIT 33.9 % (36.0-45.00); HEMOGLOBIN 11.7 g/dL (12.0-15.00); MEAN CELL VOLUME 89.9 fL (80.00-100.00); MEAN CORPUSCULAR HGB CONC 34.5 g/dl (32.0-36.0); RED BLOOD COUNT 3.77 M/uL (4.00-6.00); RED CELL DISTRIBUTION WIDTH 17.9 % (11.5-14.5)
[2024-07-05 11:06] LABS: PLATELET COUNT 68 K/uL (150-450)
[2024-07-05 12:16] LABS: ABG PH 7.358 (7.35-7.45); ABG PO2 149.6 mmHg (80-100); ABG pCO2 40.7 mmHg (35-45); BASE EXCESS -2.9 mmol/l; BICARBONATE 22.4 mmol/l (23-25); SaO2 99.1 %; Tco2 23.6 mmol/l
[2024-07-05 12:18] LABS: allen test SATISFACTORY; o2 35 %; puncture site RADIAL RIGHT
[2024-07-06] VITALS (24 sets, daily range): BP systolic 123–168; BP diastolic 76–99; O2SAT 97–100
[2024-07-06] MEDS ORDERED: RACEPINEPHRINE HCL 0.5 ML AMPUL IH SCH (09:15)
[2024-07-06] MEDS ORDERED: SODIUM CHLORIDE 0.9% IV SCH ×2 (10:30→12:00)
[2024-07-06] MEDS ORDERED: MORPHINE SULFATE IV SCH ×2 (10:30→12:00)
[2024-07-06 11:49] LABS: ABG PH 7.354 (7.35-7.45)
[2024-07-06 11:51] LABS: ABG PO2 139.7 mmHg (80-100); ABG pCO2 36.7 mmHg (35-45); BASE EXCESS -4.9 mmol/l; SaO2 98.9 %; Tco2 21.1 mmol/l
[2024-07-06 11:54] LABS: allen test SATISFACTORY; o2 35 %; puncture site RADIAL RIGHT
[2024-07-06] MEDS ORDERED: SUCRALFATE 1 G TABLET PO SCH (17:00)
[2024-07-07] VITALS (16 sets, daily range): BP systolic 116–171; BP diastolic 71–97; O2SAT 96–100
[2024-07-07] MEDS ORDERED: POTASSIUM CHLORIDE IN WATER 100 ML IV ONE (10:00)
[2024-07-07] MEDS ORDERED: POTASSIUM CHLORIDE 20MEQ/100ML H2O PB IV NR (12:00)
[2024-07-07] MEDS ORDERED: AMIODARONE HCL 200 MG TABLET PO SCH (17:00)
[2024-07-08 04:00] VITALS: BP 155/78; O2SAT 100
[2024-07-08 06:58] LABS: HEMOGLOBIN 10.4 g/dL (12.0-15.00); MEAN CELL VOLUME 91.2 fL (80.00-100.00); MEAN CORPUSCULAR HEMOGLOBIN 30.7 pg (27.00-32.0); MEAN CORPUSCULAR HGB CONC 33.7 g/dl (32.0-36.0); RED BLOOD COUNT 3.39 M/uL (4.00-6.00); RED CELL DISTRIBUTION WIDTH 17.7 % (11.5-14.5)
[2024-07-08 07:16] VITALS: BP 142/79; O2SAT 98
[2024-07-08 07:24] LABS: PLATELET COUNT 85 K/uL (150-450)
[2024-07-08 07:26] LABS: ALBUMIN 1.7 gm/dL (3.4-5.0); CALCIUM 7.9 mg/dL (8.5-10.1); GFR 11.09; MAGNESIUM 1.5 mg/dL (1.8-2.4); PHOSPHOROUS 5.2 mg/dL (2.5-4.9); POTASSIUM 3.65 mEq/L (3.5-5.1)
[2024-07-08 07:52] LABS: CREATININE SERUM 4.09 mg/dL (0.55-1.02)
[2024-07-08] MEDS ORDERED: BUMETANIDE 2.5 MG/10 ML VIAL IV SCH (09:21)
[2024-07-08 12:00] VITALS: BP 179/101; O2SAT 100
[2024-07-08] MEDS ORDERED: MORPHINE SULFATE IV SCH (16:30)
[2024-07-08] MEDS ORDERED: MORPHINE SULFATE 4 MG/ML CARTRIDGE IV SCH (16:30)
[2024-07-08] MEDS ORDERED: SODIUM CHLORIDE 0.9% IV SCH (16:30)
[2024-07-08 17:00] VITALS: BP 132/89; O2SAT 97
[2024-07-08] MEDS ORDERED: PANTOPRAZOLE SODIUM 40 MG TABLET.DR PO SCH (21:00)
[2024-07-08 21:13] VITALS: O2SAT 98
[2024-07-08 23:44] VITALS: O2SAT 91
[2024-07-09] VITALS (7 sets, daily range): BP systolic 140–155; BP diastolic 74–90; O2SAT 96–100
[2024-07-09 07:53] LABS: HEMATOCRIT 30.1 % (36.0-45.00); HEMOGLOBIN 10.4 g/dL (12.0-15.00); MEAN CELL VOLUME 89.3 fL (80.00-100.00); MEAN CORPUSCULAR HEMOGLOBIN 30.8 pg (27.00-32.0); MEAN CORPUSCULAR HGB CONC 34.5 g/dl (32.0-36.0); RED BLOOD COUNT 3.37 M/uL (4.00-6.00); RED CELL DISTRIBUTION WIDTH 17.7 % (11.5-14.5)
[2024-07-09 08:12] LABS: ALBUMIN 1.8 gm/dL (3.4-5.0); CALCIUM 8.2 mg/dL (8.5-10.1); CREATININE SERUM 3.45 mg/dL (0.55-1.02); GFR 13.5; PHOSPHOROUS 4.5 mg/dL (2.5-4.9); POTASSIUM 3.7 mEq/L (3.5-5.1)
[2024-07-09 08:17] LABS: PLATELET COUNT 92 K/uL (150-450)
[2024-07-09] MEDS ORDERED: SUCRALFATE 1 G TABLET PO SCH (17:00)
[2024-07-10] VITALS (8 sets, daily range): BP systolic 124–176; BP diastolic 65–101; O2SAT 94–99
[2024-07-10] MEDS ORDERED: MORPHINE SULFATE IV SCH (21:30)
[2024-07-10] MEDS ORDERED: SODIUM CHLORIDE 0.9% IV SCH (21:30)
[2024-07-11] VITALS (8 sets, daily range): BP systolic 105–178; BP diastolic 69–96; O2SAT 89–96
[2024-07-11 07:16] LABS: HEMATOCRIT 27.4 % (36.0-45.00); HEMOGLOBIN 9.2 g/dL (12.0-15.00); MEAN CELL VOLUME 90.5 fL (80.00-100.00); MEAN CORPUSCULAR HEMOGLOBIN 30.4 pg (27.00-32.0); MEAN CORPUSCULAR HGB CONC 33.6 g/dl (32.0-36.0); RED BLOOD COUNT 3.02 M/uL (4.00-6.00); RED CELL DISTRIBUTION WIDTH 16.8 % (11.5-14.5)
[2024-07-11 07:17] LABS: PLATELET COUNT 88 K/uL (150-450)
[2024-07-11 07:30] LABS: PARTIAL THROMBOPLASTIN TIME 28.9 SECONDS (22.0-34.0); PROTHROMBIN TIME 10.9 SECONDS (9.0-11.5)
[2024-07-11 08:17] LABS: ALBUMIN 1.4 gm/dL (3.4-5.0); BILIRUBIN TOTAL 0.39 mg/dL (0.3-1.2); BILIRUBIN,CONJUGATED 0.17 mg/dL (0.0-0.2); BILIRUBIN,UNCONJUGATED 0.22 mg/dL (0.0-0.6); CALCIUM 8.5 mg/dL (8.5-10.1); CHOL HDL RATIO 1.6 (0-5.0); GFR 10.2; MAGNESIUM 1.5 mg/dL (1.8-2.4); POTASSIUM 4.38 mEq/L (3.5-5.1); TOTAL PROTEIN 4.4 gm/dL (6.4-8.2)
[2024-07-11] MEDS ORDERED: LIDOCAINE 5% 1 PATCH ADH. TOP SCH (09:00)
[2024-07-11 09:12] LABS: CREATININE SERUM 4.4 mg/dL (0.55-1.02)
[2024-07-11 12:12] LABS: UREA CLEARANCE 1.7 ML/MIN
[2024-07-12] VITALS (7 sets, daily range): BP systolic 143–156; BP diastolic 79–90; O2SAT 94–97
[2024-07-12] MEDS ORDERED: MAGNESIUM SULFATE IN WATER 50 ML IV NR (10:00)
[2024-07-12] MEDS ORDERED: hydrALAZINE HCL 20 MG VIAL IV ONE (20:15)
[2024-07-12] MEDS ORDERED: HEPARIN SODIUM,PORCINE 500 UNITS/5 ML VIAL IV ONE (20:45)
[2024-07-12] MEDS ORDERED: IOVERSOL 320 MG/ML - 50 ML VIAL IV ONE (20:45)
[2024-07-12] MEDS ORDERED: BUPIVACAINE HCL/PF 0.25% 30ML VIAL InF ONE (20:45)
[2024-07-13] VITALS (8 sets, daily range): BP systolic 134–165; BP diastolic 90–95; O2SAT 90–96
[2024-07-13] MEDS ORDERED: TUBERCULIN,PURIF.PROT.DERIV. 10 SKIN.TEST SKIN.TEST ID ONE (09:00)
[2024-07-13 09:36] LABS: HEMATOCRIT 26.5 % (36.0-45.00); MEAN CELL VOLUME 88.2 fL (80.00-100.00); MEAN CORPUSCULAR HGB CONC 35.2 g/dl (32.0-36.0); RED CELL DISTRIBUTION WIDTH 16.9 % (11.5-14.5)
[2024-07-13 09:41] LABS: HEMOGLOBIN 9.3 g/dL (12.0-15.00); PLATELET COUNT 96 K/uL (150-450)
[2024-07-14] VITALS (7 sets, daily range): BP systolic 139–177; BP diastolic 90–92; O2SAT 93–97
[2024-07-15] VITALS: BP 150/91; O2SAT 95
[2024-07-15 01:05] VITALS: O2SAT 92
[2024-07-15 03:23] VITALS: O2SAT 94
[2024-07-15 08:00] VITALS: BP 170/90; O2SAT 95
[2024-07-15 09:33] VITALS: O2SAT 90
[2024-07-15 10:06] LABS: hav igm Negative (Negative); hcv Non Reactive (Non Reactive); hep b c Negative (Negative); hep b s ag Negative (Negative)
[2024-07-15 12:53] LABS: HEMOGLOBIN 8.5 g/dL (12.0-15.00); MEAN CORPUSCULAR HEMOGLOBIN 31.1 pg (27.00-32.0); MEAN CORPUSCULAR HGB CONC 35.3 g/dl (32.0-36.0); PLATELET COUNT 80 K/uL (150-450); RED BLOOD COUNT 2.73 M/uL (4.00-6.00); RED CELL DISTRIBUTION WIDTH 16.5 % (11.5-14.5)
[2024-07-15 13:57] LABS: CALCIUM 9.9 mg/dL (8.5-10.1); GFR 11.32; POTASSIUM 4.73 mEq/L (3.5-5.1)
[2024-07-15 14:01] LABS: CREATININE SERUM 4.02 mg/dL (0.55-1.02)
[2024-07-15 17:00] VITALS: BP 161/94; O2SAT 95
[2024-07-16 00:55] VITALS: BP 126/71; O2SAT 97
[2024-07-16 08:00] VITALS: BP 142/80; O2SAT 92
[2024-07-16 12:35] VITALS: O2SAT 90
[2024-07-16 15:00] VITALS: O2SAT 91
[2024-07-16 19:59] VITALS: BP 151/90; O2SAT 93
[2024-07-16 21:00] VITALS: O2SAT 90
[2024-07-17 00:38] VITALS: BP 149/86; O2SAT 94
[2024-07-17 02:00] VITALS: O2SAT 94
[2024-07-17 08:44] LABS: MEAN CELL VOLUME 91.4 fL (80.00-100.00); MEAN CORPUSCULAR HGB CONC 33.5 g/dl (32.0-36.0); RED BLOOD COUNT 2.22 M/uL (4.00-6.00); RED CELL DISTRIBUTION WIDTH 16.6 % (11.5-14.5)
[2024-07-17 09:10] LABS: MEAN CORPUSCULAR HEMOGLOBIN 30.6 pg (27.00-32.0)
[2024-07-17 09:13] LABS: HEMATOCRIT 20.2 % (36.0-45.00); HEMOGLOBIN 6.8 g/dL (12.0-15.00); PLATELET COUNT 68 K/uL (150-450)
[2024-07-17 09:19] LABS: ALBUMIN 1.3 gm/dL (3.4-5.0); BILIRUBIN TOTAL 0.41 mg/dL (0.3-1.2); CALCIUM 9.9 mg/dL (8.5-10.1); GFR 8.5; GLOBULINA 3.3 G/DL (2.4-3.5); MAGNESIUM 2.1 mg/dL (1.8-2.4); PHOSPHOROUS 4.1 mg/dL (2.5-4.9); POTASSIUM 5.65 mEq/L (3.5-5.1); TOTAL PROTEIN 4.6 gm/dL (6.4-8.2)
[2024-07-17 09:38] VITALS: O2SAT 92
[2024-07-17 09:41] LABS: CREATININE SERUM 5.15 mg/dL (0.55-1.02)
[2024-07-17 12:19] VITALS: O2SAT 90
[2024-07-17] MEDS ORDERED: AMINO ACIDS/PROTEIN HYDROLYS 30 ML BLIST.PACK PO SCH (13:00)
[2024-07-17] MEDS ORDERED: SODIUM POLYSTYRENE SULFONATE 30G/8 TSP PO STA (13:08)
[2024-07-17 16:00] VITALS: BP 155/85; O2SAT 94
[2024-07-17] MEDS ORDERED: SODIUM POLYSTYRENE SULFONATE 15 G/4 TSP TSP PO SCH (17:00)
[2024-07-17] MEDS ORDERED: FUROsemide 40 MG/4 ML VIAL IV STA (21:37)
[2024-07-17] MEDS ORDERED: LEVALBUTEROL HCL 0.63 MG/3 ML SOLUTION IH SCH (21:45)
[2024-07-17 22:41] LABS: ABG PH 7.318 (7.35-7.45); ABG pCO2 35.3 mmHg (35-45)
[2024-07-17 22:42] LABS: ABG PO2 54.8 mmHg (80-100); BASE EXCESS -7.5 mmol/l; BICARBONATE 17.7 mmol/l (23-25); SaO2 84.2 %; Tco2 18.8 mmol/l; allen test SATISFACTORY; o2 50 %; puncture site RADIAL LEFT
[2024-07-18] VITALS (10 sets, daily range): BP systolic 98–138; BP diastolic 53–92; O2SAT 90–100
[2024-07-18 07:28] LABS: MEAN CELL VOLUME 92.4 fL (80.00-100.00); MEAN CORPUSCULAR HGB CONC 33.9 g/dl (32.0-36.0); RED BLOOD COUNT 2.03 M/uL (4.00-6.00)
[2024-07-18 07:53] LABS: ALBUMIN 1.2 gm/dL (3.4-5.0); BILIRUBIN TOTAL 0.31 mg/dL (0.3-1.2); CALCIUM 9.6 mg/dL (8.5-10.1); GFR 7.77; GLOBULINA 3.4 G/DL (2.4-3.5); POTASSIUM 5.47 mEq/L (3.5-5.1); TOTAL PROTEIN 4.6 gm/dL (6.4-8.2)
[2024-07-18 08:03] LABS: HEMATOCRIT 18.8 % (36.0-45.00); HEMOGLOBIN 6.4 g/dL (12.0-15.00); MEAN CORPUSCULAR HEMOGLOBIN 31.5 pg (27.00-32.0); PLATELET COUNT 62 K/uL (150-450)
[2024-07-18] MEDS ORDERED: LEVALBUTEROL HCL 0.63 MG/3 ML SOLUTION IH SCH (08:15)
[2024-07-18 08:27] LABS: CREATININE SERUM 5.57 mg/dL (0.55-1.02)
[2024-07-18 23:13] LABS: MEAN CELL VOLUME 85.9 fL (80.00-100.00); MEAN CORPUSCULAR HGB CONC 35.5 g/dl (32.0-36.0)
[2024-07-18 23:15] LABS: MEAN CORPUSCULAR HEMOGLOBIN 30.3 pg (27.00-32.0); PLATELET COUNT 75 K/uL (150-450); RED CELL DISTRIBUTION WIDTH 19.4 % (11.5-14.5)
[2024-07-18 23:16] LABS: HEMATOCRIT 23.2 % (36.0-45.00); HEMOGLOBIN 8.2 g/dL (12.0-15.00)
[2024-07-19] VITALS (9 sets, daily range): BP systolic 134–145; BP diastolic 80–98; O2SAT 90–99
[2024-07-19] MEDS ORDERED: FUROsemide 40 MG/4 ML VIAL IV STA (07:23)
[2024-07-19] MEDS ORDERED: DIATRIZOATE MEGLUMINE, SODIUM 30 ML BOTTLE PO NR (09:30)
[2024-07-19] MEDS ORDERED: ALBUMIN HUMAN 100 ML VIAL IV SCH (18:00)
[2024-07-19] MEDS ORDERED: HEPARIN SODIUM,PORCINE 5,000 UNIT/ML VIAL IJ STA (18:11)
[2024-07-20] VITALS: BP 145/81; O2SAT 97
[2024-07-20 09:29] LABS: ABG PH 7.478 (7.35-7.45); ABG PO2 96.2 mmHg (80-100); ABG pCO2 31.1 mmHg (35-45); BASE EXCESS 0 mmol/l; BICARBONATE 22.6 mmol/l (23-25); Tco2 23.5 mmol/l; allen test SATISFACTORY; o2 50 %; puncture site RADIAL LEFT
[2024-07-20 09:44] VITALS: BP 117/71; O2SAT 97
[2024-07-20 12:52] VITALS: O2SAT 96
[2024-07-20 14:30] LABS: MEAN CELL VOLUME 93.1 fL (80.00-100.00); MEAN CORPUSCULAR HGB CONC 35.2 g/dl (32.0-36.0); RED BLOOD COUNT 1.56 M/uL (4.00-6.00); RED CELL DISTRIBUTION WIDTH 19.8 % (11.5-14.5)
[2024-07-20 14:49] LABS: HEMATOCRIT 14.5 % (36.0-45.00); HEMOGLOBIN 5.1 g/dL (12.0-15.00); MEAN CORPUSCULAR HEMOGLOBIN 32.6 pg (27.00-32.0); PLATELET COUNT 63 K/uL (150-450)
[2024-07-20] MEDS ORDERED: FUROsemide 40 MG/4 ML VIAL IV SCH (15:15)
[2024-07-20 16:00] VITALS: BP 137/81; O2SAT 90; O2SAT 92
[2024-07-20 17:44] LABS: ALBUMIN 1.5 gm/dL (3.4-5.0); CALCIUM 8.6 mg/dL (8.5-10.1); CREATININE SERUM 3.57 mg/dL (0.55-1.02); GFR 12.98; POTASSIUM 4.2 mEq/L (3.5-5.1)
[2024-07-20 17:52] LABS: PHOSPHOROUS 1.9 mg/dL (2.5-4.9)
[2024-07-20 19:33] VITALS: O2SAT 90
[2024-07-20] MEDS ORDERED: PANTOPRAZOLE SODIUM 40 MG/VIAL VIAL IV PUSH SCH (21:00)
[2024-07-20 21:50] LABS: ob POSITIVE (NEGATIVE)
[2024-07-20 23:00] VITALS: BP 130/72; O2SAT 97
[2024-07-21] VITALS (7 sets, daily range): BP systolic 122; BP diastolic 74; O2SAT 90–98
[2024-07-21 11:43] LABS: MEAN CELL VOLUME 90.3 fL (80.00-100.00); MEAN CORPUSCULAR HGB CONC 35.8 g/dl (32.0-36.0); RED BLOOD COUNT 2.06 M/uL (4.00-6.00); RED CELL DISTRIBUTION WIDTH 16.9 % (11.5-14.5)
[2024-07-21 11:45] LABS: HEMATOCRIT 18.6 % (36.0-45.00); MEAN CORPUSCULAR HEMOGLOBIN 32.5 pg (27.00-32.0)
[2024-07-21 11:46] LABS: HEMOGLOBIN 6.7 g/dL (12.0-15.00); PLATELET COUNT 67 K/uL (150-450)
[2024-07-21] MEDS ORDERED: levoFLOXacin IN DEXTROSE 5 % 5 MG/ML PIGGYBAG IV NR (17:00)
[2024-07-21] MEDS ORDERED: HEPARIN SODIUM,PORCINE 5,000 UNITS/ML VIAL IV ONE (20:45)
[2024-07-21] MEDS ORDERED: HEPARIN SODIUM,PORCINE 5,000 UNITS/ML VIAL ONE ×2 (20:54→21:03)
[2024-07-22] VITALS (9 sets, daily range): BP systolic 145–165; BP diastolic 80–95; O2SAT 87–97
[2024-07-22 07:10] LABS: HEMATOCRIT 25.4 % (36.0-45.00); MEAN CELL VOLUME 97.4 fL (80.00-100.00); RED BLOOD COUNT 2.61 M/uL (4.00-6.00); RED CELL DISTRIBUTION WIDTH 15.7 % (11.5-14.5)
[2024-07-22 07:11] LABS: HEMOGLOBIN 9.9 g/dL (12.0-15.00); MEAN CORPUSCULAR HEMOGLOBIN 37.9 pg (27.00-32.0); PLATELET COUNT 57 K/uL (150-450)
[2024-07-22] MEDS ORDERED: SOD FERRIC GLUC COMPLX/SUCROSE 62.5 MG/5 ML AMPUL IV SCH (09:00)
[2024-07-22] MEDS ORDERED: LEVALBUTEROL HCL 0.63 MG/3 ML SOLUTION IH SCH (12:00)
[2024-07-22] MEDS ORDERED: IPRATROPIUM BROMIDE 0.5 MG/2.5 ML AMPUL.NEB IH SCH (14:00)
[2024-07-22 14:35] LABS: ALBUMIN 1.9 gm/dL (3.4-5.0); BILIRUBIN TOTAL 0.83 mg/dL (0.3-1.2); BILIRUBIN,CONJUGATED 0.33 mg/dL (0.0-0.2); BILIRUBIN,UNCONJUGATED 0.5 mg/dL (0.0-0.6); CALCIUM 8.6 mg/dL (8.5-10.1); CREATININE SERUM 3.06 mg/dL (0.55-1.02); GFR 15.51; MAGNESIUM 1.8 mg/dL (1.8-2.4); POTASSIUM 3.38 mEq/L (3.5-5.1); TOTAL PROTEIN 4.9 gm/dL (6.4-8.2)
[2024-07-22 18:40] LABS: HEMATOCRIT 24.9 % (36.0-45.00); HEMOGLOBIN 9.1 g/dL (12.0-15.00); MEAN CELL VOLUME 95.9 fL (80.00-100.00); MEAN CORPUSCULAR HEMOGLOBIN 35.2 pg (27.00-32.0); MEAN CORPUSCULAR HGB CONC 36.6 g/dl (32.0-36.0)
[2024-07-22 18:41] LABS: PLATELET COUNT 55 K/uL (150-450)
[2024-07-22] MEDS ORDERED: HEPARIN SODIUM,PORCINE 5,000 UNITS/ML VIAL IV ONE (18:45)
[2024-07-22] MEDS ORDERED: HEPARIN SODIUM,PORCINE 5,000 UNITS/ML VIAL ONE (19:49)
[2024-07-22] MEDS ORDERED: FUROsemide 40 MG/4 ML VIAL IV SCH (21:00)
[2024-07-23] VITALS (9 sets, daily range): BP systolic 133–139; BP diastolic 84–87; O2SAT 89–97
[2024-07-23] MEDS ORDERED: levoFLOXacin IN DEXTROSE 5 % 500MG/100ML PIGGYBAG IV SCH (09:00)
[2024-07-23 12:54] LABS: HEMATOCRIT 25.3 % (36.0-45.00); MEAN CELL VOLUME 89.9 fL (80.00-100.00); MEAN CORPUSCULAR HGB CONC 34.7 g/dl (32.0-36.0); RED BLOOD COUNT 2.81 M/uL (4.00-6.00)
[2024-07-23 13:03] LABS: MEAN CORPUSCULAR HEMOGLOBIN 31.3 pg (27.00-32.0); PLATELET COUNT 53 K/uL (150-450)
[2024-07-23 13:04] LABS: HEMOGLOBIN 8.8 g/dL (12.0-15.00)
[2024-07-23] MEDS ORDERED: hydrALAZINE HCL 25 MG TABLET PO SCH (21:00)
[2024-07-24] VITALS (7 sets, daily range): BP systolic 146–160; BP diastolic 82–95; O2SAT 93–98
[2024-07-24] MEDS ORDERED: FUROsemide 40 MG/4 ML VIAL ONE (22:15)
[2024-07-25] VITALS (9 sets, daily range): BP systolic 111–141; BP diastolic 76–83; O2SAT 92–100
[2024-07-25] MEDS ORDERED: GUAIFENESIN 200 MG/10 ML BLIST.PACK PO SCH (12:00)
[2024-07-25 13:30] LABS: MEAN CORPUSCULAR HGB CONC 35.4 g/dl (32.0-36.0); RED BLOOD COUNT 2.05 M/uL (4.00-6.00); RED CELL DISTRIBUTION WIDTH 16.7 % (11.5-14.5)
[2024-07-25 13:40] LABS: HEMATOCRIT 19.3 % (36.0-45.00); MEAN CORPUSCULAR HEMOGLOBIN 33.1 pg (27.00-32.0)
[2024-07-25 13:41] LABS: HEMOGLOBIN 6.8 g/dL (12.0-15.00); PLATELET COUNT 64 K/uL (150-450)
[2024-07-25 13:47] LABS: INR 1.11
[2024-07-25 13:49] LABS: PARTIAL THROMBOPLASTIN TIME 43.8 SECONDS (22.0-34.0)
[2024-07-25 13:51] LABS: CALCIUM 8.5 mg/dL (8.5-10.1); GFR 11.09; POTASSIUM 3.42 mEq/L (3.5-5.1)
[2024-07-25 13:58] LABS: CREATININE SERUM 4.09 mg/dL (0.55-1.02)
[2024-07-25] MEDS ORDERED: EPOETIN ALFA-EPBX 10,000 UNIT/ML VIAL (Retacrit) SUBCUTANEO ONE (20:15)
[2024-07-26] VITALS (9 sets, daily range): BP systolic 114–138; BP diastolic 81–86; O2SAT 90–100
[2024-07-26] MEDS ORDERED: HEPARIN SODIUM,PORCINE 5,000 UNITS/ML VIAL ONE (15:52)
[2024-07-26 22:25] LABS: MEAN CELL VOLUME 94.3 fL (80.00-100.00); MEAN CORPUSCULAR HGB CONC 38.8 g/dl (32.0-36.0); RED BLOOD COUNT 2.28 M/uL (4.00-6.00)
[2024-07-26 22:29] LABS: MEAN CORPUSCULAR HEMOGLOBIN 36.4 pg (27.00-32.0); PLATELET COUNT 74 K/uL (150-450)
[2024-07-26 22:30] LABS: HEMATOCRIT 21.5 % (36.0-45.00); HEMOGLOBIN 8.3 g/dL (12.0-15.00)
[2024-07-27] VITALS (9 sets, daily range): BP systolic 70–131; BP diastolic 53–79; O2SAT 90–99
[2024-07-27] MEDS ORDERED: PEG3350/SOD SULF,BICARB,CL/KCL 4,000 ML GALLON PO ONE ×2 (19:00→20:55)
[2024-07-27] MEDS ORDERED: PANTOPRAZOLE SODIUM 40 MG/VIAL VIAL IV PUSH SCH (21:00)
[2024-07-27] MEDS ORDERED: FUROsemide 20 MG/2 ML VIAL IV PRN (22:45)
[2024-07-28] VITALS (7 sets, daily range): BP systolic 91–105; BP diastolic 50–78; O2SAT 95–100
[2024-07-28] MEDS ORDERED: NA PHOS,M-B/NA PHOS,DI-BA 1 BOTTLE ENEMA RC ONE (06:00)
[2024-07-28] MEDS ORDERED: MIDAZOLAM HCL 2 MG/2 ML VIAL IV ONE (10:00)
[2024-07-28] MEDS ORDERED: HEPARIN SODIUM,PORCINE 5,000 UNITS/ML VIAL ONE (15:48)
[2024-07-28] MEDS ORDERED: HEPARIN SODIUM,PORCINE 5,000 UNIT/ML VIAL IJ SCH (16:00)
[2024-07-28 18:52] LABS: MEAN CELL VOLUME 91.7 fL (80.00-100.00); MEAN CORPUSCULAR HEMOGLOBIN 32.2 pg (27.00-32.0); MEAN CORPUSCULAR HGB CONC 35.4 g/dl (32.0-36.0); RED BLOOD COUNT 1.83 M/uL (4.00-6.00); RED CELL DISTRIBUTION WIDTH 16.4 % (11.5-14.5)
[2024-07-28 18:55] LABS: HEMATOCRIT 16.7 % (36.0-45.00); HEMOGLOBIN 5.9 g/dL (12.0-15.00)
[2024-07-28 18:56] LABS: PLATELET COUNT 79 K/uL (150-450)
[2024-07-28 19:56] LABS: POTASSIUM 2.91 mEq/L (3.5-5.1)
[2024-07-28 20:15] LABS: CALCIUM 8.3 mg/dL (8.5-10.1); GFR 18.71; MAGNESIUM 1.8 mg/dL (1.8-2.4); PHOSPHOROUS 2.7 mg/dL (2.5-4.9)
[2024-07-28 20:33] LABS: CREATININE SERUM 2.6 mg/dL (0.55-1.02)
[2024-07-29] VITALS (14 sets, daily range): BP systolic 93–178; BP diastolic 66–88; O2SAT 81–100
[2024-07-29] MEDS ORDERED: POTASSIUM CHLORIDE 20MEQ/100ML H2O PB IV NR (07:00)
[2024-07-29] MEDS ORDERED: BUDESONIDE 0.5 MG/2 ML AMPUL.NEB IH SCH (14:25)
[2024-07-29] MEDS ORDERED: METHYLPREDNISOLONE SOD SUCC 125 MG VIAL ONE (16:45)
[2024-07-29] MEDS ORDERED: DEXTROSE 10% CENTRAL SCH (17:00)
[2024-07-29] MEDS ORDERED: AMINO ACIDS CENTRAL SCH (17:00)
[2024-07-29] MEDS ORDERED: EPINEPHRINE HCL/PF 1 MG/ML AMPUL IV PUSH ONE (17:45)
[2024-07-29] MEDS ORDERED: NOREPINEPHRINE BITARTRATE 8 MG in DEXTROSE 5 % IN WATER 250 ML IV SCH (17:45)
[2024-07-29] MEDS ORDERED: LORazepam 2 MG/ML VIAL IV ONE (17:45)
[2024-07-29] MEDS ORDERED: ATROPINE SULFATE 0.1 MG/ML DISP.SYRIN IV ONE (17:45)
[2024-07-29] MEDS ORDERED: LevETIRAcetam 500 MG/5 ML VIAL IV ONE (17:45)
[2024-07-29 20:00] LABS: ABG PH 7.289 (7.35-7.45); ABG PO2 94.5 mmHg (80-100); ABG pCO2 42.1 mmHg (35-45); BASE EXCESS -6.5 mmol/l; BICARBONATE 19.8 mmol/l (23-25); Tco2 21.1 mmol/l
[2024-07-29] MEDS ORDERED: AMIODARONE HCL 50 MG/ML AMPUL IV SCH (20:00)
[2024-07-29 20:15] LABS: allen test SATISFACTORY; o2 100 %; puncture site RADIAL LEFT
[2024-07-29] MEDS ORDERED: MIDAZOLAM HCL 50 MG in 0.9 % SODIUM CHLORIDE 50 ML IV SCH (23:45)
[2024-07-30] VITALS (18 sets, daily range): BP systolic 83–157; BP diastolic 57–97; O2SAT 96–100
[2024-07-30 10:27] LABS: ALBUMIN 1.8 gm/dL (3.4-5.0); BILIRUBIN TOTAL 0.64 mg/dL (0.3-1.2); CALCIUM 8.7 mg/dL (8.5-10.1); CHOL HDL RATIO 2.6 (0-5.0); GFR 11.45; GLOBULINA 3.6 G/DL (2.4-3.5); MAGNESIUM 1.9 mg/dL (1.8-2.4); PHOSPHOROUS 4.7 mg/dL (2.5-4.9); POTASSIUM 4.63 mEq/L (3.5-5.1); TOTAL PROTEIN 5.4 gm/dL (6.4-8.2)
[2024-07-30 10:29] LABS: CREATININE SERUM 3.98 mg/dL (0.55-1.02)
[2024-07-30] MEDS ORDERED: AZTREONAM 2,000 MG VIAL IV SCH (13:05)
[2024-07-30] MEDS ORDERED: HEPARIN SODIUM,PORCINE 5,000 UNITS/ML VIAL ONE (20:12)
[2024-07-30] MEDS ORDERED: INSULIN NPH HUMAN ISOPHANE 1,000 UNITS/10 ML UNITS SUBCUTANEO SCH (21:00)
[2024-07-30] MEDS ORDERED: VANCOMYCIN HCL 1,000 MG VIAL IV SCH (21:00)
[2024-07-30 22:05] LABS: ABG PH 7.234 (7.35-7.45); ABG PO2 156.1 mmHg (80-100); ABG pCO2 47.1 mmHg (35-45); BASE EXCESS -8.1 mmol/l; BICARBONATE 19.4 mmol/l (23-25); SaO2 98.8 %
[2024-07-30 22:06] LABS: Tco2 20.9 mmol/l; allen test SATISFACTORY; o2 100 %; puncture site RADIAL RIGHT
[2024-07-30 23:19] LABS: HEMATOCRIT 25.7 % (36.0-45.00); MEAN CELL VOLUME 92.9 fL (80.00-100.00); MEAN CORPUSCULAR HEMOGLOBIN 33.5 pg (27.00-32.0); MEAN CORPUSCULAR HGB CONC 36.3 g/dl (32.0-36.0); PLATELET COUNT 78 K/uL (150-450); RED BLOOD COUNT 2.77 M/uL (4.00-6.00); RED CELL DISTRIBUTION WIDTH 16.6 % (11.5-14.5)
[2024-07-30 23:35] LABS: HEMOGLOBIN 9.3 g/dL (12.0-15.00)
[2024-07-31] VITALS (13 sets, daily range): BP systolic 82–137; BP diastolic 63–92; O2SAT 95–100
[2024-07-31 07:35] LABS: ALBUMIN 1.6 gm/dL (3.4-5.0); BILIRUBIN TOTAL 0.71 mg/dL (0.3-1.2); CALCIUM 8.5 mg/dL (8.5-10.1); CREATININE SERUM 2.63 mg/dL (0.55-1.02); GFR 18.47; GLOBULINA 3.6 G/DL (2.4-3.5); MAGNESIUM 1.6 mg/dL (1.8-2.4); PHOSPHOROUS 2.2 mg/dL (2.5-4.9); TOTAL PROTEIN 5.2 gm/dL (6.4-8.2)
[2024-07-31 08:04] LABS: POTASSIUM 2.97 mEq/L (3.5-5.1)
[2024-07-31 08:17] LABS: MEAN CELL VOLUME 97.9 fL (80.00-100.00); MEAN CORPUSCULAR HGB CONC 38.6 g/dl (32.0-36.0); RED BLOOD COUNT 2.22 M/uL (4.00-6.00); RED CELL DISTRIBUTION WIDTH 16.6 % (11.5-14.5)
[2024-07-31 08:25] LABS: ABG PH 7.266 (7.35-7.45); ABG PO2 131.4 mmHg (80-100); ABG pCO2 47.2 mmHg (35-45); SaO2 98.3 %; Tco2 22.5 mmol/l; allen test SATISFACTORY; puncture site RADIAL RIGHT
[2024-07-31 08:26] LABS: o2 80 %
[2024-07-31 09:10] LABS: HEMATOCRIT 21.7 % (36.0-45.00); MEAN CORPUSCULAR HEMOGLOBIN 37.8 pg (27.00-32.0)
[2024-07-31 09:11] LABS: HEMOGLOBIN 8.4 g/dL (12.0-15.00); PLATELET COUNT 65 K/uL (150-450)
[2024-07-31] MEDS ORDERED: MAGNESIUM SULFATE IN WATER 50 ML IV STA (11:22)
[2024-07-31] MEDS ORDERED: POTASSIUM CHLORIDE IN WATER 40 MEQ/100 ML PIGGYBAG IV SCH (13:00)
[2024-08-01] VITALS (16 sets, daily range): BP systolic 90–150; BP diastolic 64–88; O2SAT 91–100
[2024-08-01 06:55] LABS: HEMATOCRIT 25.2 % (36.0-45.00); MEAN CELL VOLUME 88.2 fL (80.00-100.00); MEAN CORPUSCULAR HEMOGLOBIN 31.4 pg (27.00-32.0); MEAN CORPUSCULAR HGB CONC 35.6 g/dl (32.0-36.0); RED BLOOD COUNT 2.85 M/uL (4.00-6.00); RED CELL DISTRIBUTION WIDTH 17.1 % (11.5-14.5)
[2024-08-01 07:00] LABS: PLATELET COUNT 50 K/uL (150-450)
[2024-08-01 07:08] LABS: INR 1.02; PARTIAL THROMBOPLASTIN TIME 36.5 SECONDS (22.0-34.0); PROTHROMBIN TIME 11.1 SECONDS (9.0-11.5)
[2024-08-01 07:30] LABS: BILIRUBIN TOTAL 0.6 mg/dL (0.3-1.2); BILIRUBIN,CONJUGATED 0.15 mg/dL (0.0-0.2); BILIRUBIN,UNCONJUGATED 0.45 mg/dL (0.0-0.6); CALCIUM 8.6 mg/dL (8.5-10.1); CHOL HDL RATIO 3.9 (0-5.0); CREATININE SERUM 2.95 mg/dL (0.55-1.02); GFR 16.17; POTASSIUM 4.34 mEq/L (3.5-5.1); TOTAL PROTEIN 5.1 gm/dL (6.4-8.2)
[2024-08-01 08:00] LABS: PHOSPHOROUS 1.1 mg/dL (2.5-4.9)
[2024-08-01] MEDS ORDERED: POTASSIUM PHOS,M-BASIC-D-BASIC 3 MM/ML VIAL IV SCH (09:00)
[2024-08-01 10:30] LABS: ABG PH 7.233 (7.35-7.45); ABG PO2 144.7 mmHg (80-100); ABG pCO2 43.1 mmHg (35-45); BASE EXCESS -9.4 mmol/l; BICARBONATE 17.8 mmol/l (23-25); SaO2 98.5 %; Tco2 19.1 mmol/l; o2 100 %
[2024-08-01 10:31] LABS: allen test SATISFACTORY; puncture site RADIAL RIGHT
[2024-08-01] MEDS ORDERED: CEFIDEROCOL SULFATE TOSYLATE 1 GM VIAL IV NR (12:00)
[2024-08-01] MEDS ORDERED: AMPICILLIN SODIUM/SULBACTAM NA 3,000 MG VIAL IV SCH (17:00)
[2024-08-01] MEDS ORDERED: AMIODARONE HCL 200 MG TABLET PO SCH (17:00)
[2024-08-01] MEDS ORDERED: CEFIDEROCOL SULFATE TOSYLATE 1 GM VIAL IV SCH (21:00)
[2024-08-02] VITALS (13 sets, daily range): BP systolic 97–118; BP diastolic 63–82; O2SAT 95–100
[2024-08-02] MEDS ORDERED: LIDOCAINE 1 EACH ADH..PATCH TOP SCH (09:00)
[2024-08-02 09:17] LABS: ABG PO2 157.8 mmHg (80-100); ABG pCO2 54.8 mmHg (35-45); BASE EXCESS -13.5 mmol/l; BICARBONATE 16.5 mmol/l (23-25); SaO2 98.2 %; Tco2 18.2 mmol/l
[2024-08-02 09:18] LABS: allen test SATISFACTORY; o2 100 %; puncture site RADIAL LEFT
[2024-08-02 09:19] LABS: ABG PH 7.097 (7.35-7.45)
[2024-08-02] MEDS ORDERED: SODIUM BICARBONATE 50MEQ/50ML VIAL IV ONE (11:09)
[2024-08-02] MEDS ORDERED: SODIUM BICARBONATE 50MEQ/50ML VIAL IV STA (11:10)
[2024-08-02 13:02] LABS: ALBUMIN 1.6 gm/dL (3.4-5.0); GLOBULINA 3.5 G/DL (2.4-3.5)
[2024-08-02 13:04] LABS: UREA CLEARANCE 0.1 ML/MIN
[2024-08-02] MEDS ORDERED: HEPARIN SODIUM,PORCINE 5,000 UNITS/ML VIAL ONE (19:21)
[2024-08-03] VITALS (10 sets, daily range): BP systolic 95–162; BP diastolic 49–81; O2SAT 10–100
[2024-08-03 00:51] LABS: HEMOGLOBIN 9.7 g/dL (12.0-15.00); MEAN CELL VOLUME 85.6 fL (80.00-100.00); MEAN CORPUSCULAR HEMOGLOBIN 35.6 pg (27.00-32.0); MEAN CORPUSCULAR HGB CONC 41.6 g/dl (32.0-36.0); RED BLOOD COUNT 2.71 M/uL (4.00-6.00); RED CELL DISTRIBUTION WIDTH 17.4 % (11.5-14.5)
[2024-08-03 00:52] LABS: HEMATOCRIT 23.2 % (36.0-45.00); PLATELET COUNT 26 K/uL (150-450)
[2024-08-04] VITALS (7 sets, daily range): BP systolic 96–123; BP diastolic 57–74; O2SAT 100
[2024-08-04 01:12] LABS: HEMATOCRIT 28.6 % (36.0-45.00); HEMOGLOBIN 9.9 g/dL (12.0-15.00); MEAN CELL VOLUME 84.4 fL (80.00-100.00); MEAN CORPUSCULAR HEMOGLOBIN 29.2 pg (27.00-32.0); MEAN CORPUSCULAR HGB CONC 34.6 g/dl (32.0-36.0); RED BLOOD COUNT 3.39 M/uL (4.00-6.00); RED CELL DISTRIBUTION WIDTH 17.4 % (11.5-14.5)
[2024-08-04 02:20] LABS: PLATELET COUNT 29 K/uL (150-450)
[2024-08-04 06:52] LABS: ALBUMIN 1.4 gm/dL (3.4-5.0); BILIRUBIN TOTAL 1.01 mg/dL (0.3-1.2); CALCIUM 8.6 mg/dL (8.5-10.1); CREATININE SERUM 2.8 mg/dL (0.55-1.02); GFR 17.18; GLOBULINA 3.9 G/DL (2.4-3.5); MAGNESIUM 1.7 mg/dL (1.8-2.4); POTASSIUM 3.5 mEq/L (3.5-5.1); TOTAL PROTEIN 5.3 gm/dL (6.4-8.2)
[2024-08-04 06:58] LABS: HEMATOCRIT 28.8 % (36.0-45.00); MEAN CELL VOLUME 85.2 fL (80.00-100.00); MEAN CORPUSCULAR HEMOGLOBIN 29.5 pg (27.00-32.0); MEAN CORPUSCULAR HGB CONC 34.7 g/dl (32.0-36.0); RED BLOOD COUNT 3.38 M/uL (4.00-6.00); RED CELL DISTRIBUTION WIDTH 17.3 % (11.5-14.5)
[2024-08-04 07:49] LABS: PLATELET COUNT 26 K/uL (150-450)
[2024-08-04 09:16] LABS: HEMOGLOBIN 9.6 g/dL (12.0-15.00); MEAN CELL VOLUME 84.5 fL (80.00-100.00); MEAN CORPUSCULAR HEMOGLOBIN 29.1 pg (27.00-32.0); MEAN CORPUSCULAR HGB CONC 34.4 g/dl (32.0-36.0); RED BLOOD COUNT 3.31 M/uL (4.00-6.00); RED CELL DISTRIBUTION WIDTH 17.3 % (11.5-14.5)
[2024-08-04 09:45] LABS: PLATELET COUNT 25 K/uL (150-450)
[2024-08-04 12:55] LABS: ABG PH 7.118 (7.35-7.45); ABG PO2 198.3 mmHg (80-100); ABG pCO2 51.9 mmHg (35-45); BASE EXCESS -13.1 mmol/l; BICARBONATE 16.4 mmol/l (23-25); SaO2 99.1 %
[2024-08-04 12:56] LABS: allen test SATISFACTORY; o2 100 %; puncture site RADIAL LEFT
[2024-08-04 15:14] LABS: PH,URINE 5.5 (5.0-8.0); URINE APPEARANCE Turbid; URINE BACTERIA 613.2 uL (0.0-1933); URINE BILIRRUBIN Negative (NEGATIVE); URINE BLOOD Large; URINE CAST 18.98 uL (0.0-1.40); URINE COLOR Yellow; URINE GLUCOSE Negative (NEGATIVE); URINE KETONE Negative (NEGATIVE); URINE LEUKOCYTE Moderate; URINE NITRATE Negative; URINE RBC 6580.9 uL (0.0-20.8); URINE UROBILINOGEN 0.2 E.U./dl; URINE WBC 774.5 uL (0.0-23.2)
[2024-08-04 16:03] LABS: URINE EPITHELIAL CELLS > 201.7 uL (0.0-38.8); URINE PROTEIN 100 (NEGATIVE)
[2024-08-04 16:05] LABS: URINE YEAST MANY /hpf
[2024-08-04 17:37] LABS: HEMATOCRIT 27.7 % (36.0-45.00); HEMOGLOBIN 9.5 g/dL (12.0-15.00); MEAN CELL VOLUME 84.8 fL (80.00-100.00); MEAN CORPUSCULAR HGB CONC 34.2 g/dl (32.0-36.0); RED BLOOD COUNT 3.26 M/uL (4.00-6.00); RED CELL DISTRIBUTION WIDTH 17.6 % (11.5-14.5)
[2024-08-04 18:18] LABS: PLATELET COUNT 26 K/uL (150-450)
[2024-08-04] MEDS ORDERED: HEPARIN SODIUM,PORCINE 5,000 UNITS/ML VIAL IJ ONE (18:45)
[2024-08-05] VITALS (19 sets, daily range): BP systolic 74–141; BP diastolic 47–70; O2SAT 96–100
[2024-08-05] MEDS ORDERED: NOREPINEPHRINE BITARTRATE 8 MG in DEXTROSE 5 % IN WATER 250 ML IV SCH (07:30)
[2024-08-05 11:33] LABS: ABG PH 7.174 (7.35-7.45); ABG PO2 119.6 mmHg (80-100); ABG pCO2 51.8 mmHg (35-45); BASE EXCESS -10.1 mmol/l; BICARBONATE 18.6 mmol/l (23-25); SaO2 96.9 %; Tco2 20.2 mmol/l
[2024-08-05 11:34] LABS: allen test SATISFACTORY; o2 100 %; puncture site RADIAL RIGHT
[2024-08-05] MEDS ORDERED: FLUCONAZOLE IN NACL,ISO-OSM 2 MG/ML ML IV SCH (17:00)
[2024-08-06] VITALS (24 sets, daily range): BP systolic 79–107; BP diastolic 51–74; O2SAT 93–100
[2024-08-06 08:40] LABS: ABG PO2 122.2 mmHg (80-100); ABG pCO2 58.1 mmHg (35-45); BASE EXCESS -14.1 mmol/l; BICARBONATE 16.5 mmol/l (23-25); SaO2 95.9 %; Tco2 18.3 mmol/l
[2024-08-06] MEDS ORDERED: SODIUM BICARBONATE 50MEQ/50ML VIAL IV ONE (09:12)
[2024-08-06] MEDS ORDERED: SODIUM BICARBONATE 1 MEQ/ML DISP.SYRIN 50ML IV ONE (09:45)
[2024-08-06] MEDS ORDERED: SODIUM BICARBONATE IV SCH (09:45)
[2024-08-06] MEDS ORDERED: SODIUM CHLORIDE 0.9% IV SCH (09:45)
[2024-08-06 10:50] LABS: ABG PH 7.072 (7.35-7.45); allen test SATISFACTORY; o2 100 %; puncture site RADIAL RIGHT
[2024-08-07] VITALS (22 sets, daily range): BP systolic 56–80; BP diastolic 27–57; O2SAT 91–100
[2024-08-07 08:53] LABS: BASE EXCESS -17.7 mmol/l; BICARBONATE 14.8 mmol/l (23-25); SaO2 56.1 %; Tco2 16.8 mmol/l
[2024-08-07] MEDS ORDERED: SODIUM BICARBONATE 50MEQ/50ML VIAL IV ONE (09:03)
[2024-08-07] MEDS ORDERED: SODIUM BICARBONATE 50MEQ/50ML VIAL IV STA (09:05)
[2024-08-07 10:00] LABS: ABG PH 6.975 (7.35-7.45); ABG PO2 49.9 mmHg (80-100); ABG pCO2 65.2 mmHg (35-45); allen test SATISFACTORY; puncture site RADIAL RIGHT
[2024-08-07 10:03] LABS: o2 100 %
[2024-08-08] VITALS: BP 62/42; O2SAT 100
[2024-08-08 06:55] LABS: MEAN CELL VOLUME 88.6 fL (80.00-100.00); MEAN CORPUSCULAR HGB CONC 32.5 g/dl (32.0-36.0); RED BLOOD COUNT 2.64 M/uL (4.00-6.00); RED CELL DISTRIBUTION WIDTH 18.3 % (11.5-14.5)
[2024-08-08 07:21] LABS: INR 2.68
[2024-08-08 07:24] VITALS: O2SAT 98
[2024-08-08 07:26] LABS: PROTHROMBIN TIME 27.2 SECONDS (9.0-11.5)
[2024-08-08 07:28] LABS: PARTIAL THROMBOPLASTIN TIME 119.8 SECONDS (22.0-34.0)
[2024-08-08 07:40] LABS: HEMATOCRIT 23.4 % (36.0-45.00); MEAN CORPUSCULAR HEMOGLOBIN 28.7 pg (27.00-32.0)
[2024-08-08 07:41] LABS: HEMOGLOBIN 7.6 g/dL (12.0-15.00); PLATELET COUNT 18 K/uL (150-450)
[2024-08-08 08:47] LABS: BILIRUBIN TOTAL 1.06 mg/dL (0.3-1.2); BILIRUBIN,CONJUGATED 0.18 mg/dL (0.0-0.2); BILIRUBIN,UNCONJUGATED 0.88 mg/dL (0.0-0.6); CALCIUM 7.6 mg/dL (8.5-10.1); CHOL HDL RATIO 3.9 (0-5.0); CREATININE SERUM 2.73 mg/dL (0.55-1.02); GFR 17.69; POTASSIUM 3.5 mEq/L (3.5-5.1); TOTAL PROTEIN 3.7 gm/dL (6.4-8.2)
[2024-08-08 09:00] VITALS: BP 47/22
[2024-08-08 12:31] LABS: ALBUMIN 0.9 gm/dL (3.4-5.0)
== END 2024-08-08 10:28 | disposition expired | DRG 853 ==
LOC: ER 19:24 → ICU-2 06-25 13:21 → SURH 06-25 13:21 → O/R 06-29 15:13 → ICU 06-29 23:07 → SURH 07-08 14:30 → ICUI 07-29 19:37 → ICU 07-29 19:43
PROVIDERS: General Practice; Internal Medicine; Internal Medicine Cardiovascular Disease; Internal Medicine Infectious Disease; Internal Medicine Nephrology; Internal Medicine Pulmonary Disease; Obstetrics & Gynecology; Specialist; Student in an Organized Health Care Education/Training Program; ADMIT Internal Medicine; ATTEND Internal Medicine
PROC: BW21ZZZ Computerized Tomography (CT Scan) of Abdomen and Pelvis (ICD-10-PCS; 2024-06-24)
PROC: BB24ZZZ Computerized Tomography (CT Scan) of Bilateral Lungs (ICD-10-PCS; 2024-06-25)
PROC: 3E0F7GC Introduction of Other Therapeutic Substance into Respiratory Tract, Via Natural or Artificial Opening (ICD-10-PCS; 2024-06-25)
PROC: 5A1D70Z Performance of Urinary Filtration, Intermittent, Less than 6 Hours Per Day (ICD-10-PCS; 2024-06-25)
PROC: 05HM33Z Insertion of Infusion Device into Right Internal Jugular Vein, Percutaneous Approach (ICD-10-PCS; 2024-06-26)
PROC: 30233L1 Transfusion of Nonautologous Fresh Plasma into Peripheral Vein, Percutaneous Approach (ICD-10-PCS; 2024-06-27)
PROC: B246ZZZ Ultrasonography of Right and Left Heart (ICD-10-PCS; 2024-06-28)
PROC: 30233R1 Transfusion of Nonautologous Platelets into Peripheral Vein, Percutaneous Approach (ICD-10-PCS; 2024-06-28)
PROC: BB24ZZZ Computerized Tomography (CT Scan) of Bilateral Lungs (ICD-10-PCS; 2024-06-29)
PROC: 0D1M0Z4 Bypass Descending Colon to Cutaneous, Open Approach (ICD-10-PCS; 2024-06-29)
PROC: 0D9W0ZZ Drainage of Peritoneum, Open Approach (ICD-10-PCS; 2024-06-29)
PROC: 3E1M38Z Irrigation of Peritoneal Cavity using Irrigating Substance, Percutaneous Approach (ICD-10-PCS; 2024-06-29)
PROC: 0DTN0ZZ Resection of Sigmoid Colon, Open Approach (ICD-10-PCS; principal; 2024-06-29 19:00)
PROC: 0DH68UZ Insertion of Feeding Device into Stomach, Via Natural or Artificial Opening Endoscopic (ICD-10-PCS; 2024-06-30)
PROC: 5A1D70Z Performance of Urinary Filtration, Intermittent, Less than 6 Hours Per Day (ICD-10-PCS; 2024-07-01)
PROC: 5A1D70Z Performance of Urinary Filtration, Intermittent, Less than 6 Hours Per Day (ICD-10-PCS; 2024-07-04)
PROC: 5A1D70Z Performance of Urinary Filtration, Intermittent, Less than 6 Hours Per Day (ICD-10-PCS; 2024-07-06)
PROC: 4A12X4Z Monitoring of Cardiac Electrical Activity, External Approach (ICD-10-PCS; 2024-07-08)
PROC: 06HY33Z Insertion of Infusion Device into Lower Vein, Percutaneous Approach (ICD-10-PCS; 2024-07-12)
PROC: B54MZZZ Ultrasonography of Right Upper Extremity Veins (ICD-10-PCS; 2024-07-13)
PROC: 30233N1 Transfusion of Nonautologous Red Blood Cells into Peripheral Vein, Percutaneous Approach (ICD-10-PCS; 2024-07-18)
PROC: BW21ZZZ Computerized Tomography (CT Scan) of Abdomen and Pelvis (ICD-10-PCS; 2024-07-20)
PROC: 5A1D70Z Performance of Urinary Filtration, Intermittent, Less than 6 Hours Per Day (ICD-10-PCS; 2024-07-22)
PROC: 5A0935A Assistance with Respiratory Ventilation, Less than 24 Consecutive Hours, High Flow/Velocity Cannula (ICD-10-PCS; 2024-07-24)
PROC: CD271ZZ Tomographic (Tomo) Nuclear Medicine Imaging of Gastrointestinal Tract using Technetium 99m (Tc-99m) (ICD-10-PCS; 2024-07-27)
PROC: 5A1955Z Respiratory Ventilation, Greater than 96 Consecutive Hours (ICD-10-PCS; 2024-07-29)
PROC: 5A1D70Z Performance of Urinary Filtration, Intermittent, Less than 6 Hours Per Day (ICD-10-PCS; 2024-07-30)
DX: A41.9 Sepsis, unspecified organism (principal); J18.9 Pneumonia, unspecified organism; N18.6 End stage renal disease; I12.0 Hypertensive chronic kidney disease with stage 5 chronic kidney disease or end stage renal disease; C34.91 Malignant neoplasm of unspecified part of right bronchus or lung; K57.20 Diverticulitis of large intestine with perforation and abscess without bleeding; C79.31 Secondary malignant neoplasm of brain; D61.818 Other pancytopenia; N39.0 Urinary tract infection, site not specified; N17.8 Other acute kidney failure; E11.22 Type 2 diabetes mellitus with diabetic chronic kidney disease; D63.0 Anemia in neoplastic disease; E11.59 Type 2 diabetes mellitus with other circulatory complications; E78.49 Other hyperlipidemia; E87.5 Hyperkalemia; E83.52 Hypercalcemia; D69.6 Thrombocytopenia, unspecified; J44.89 Other specified chronic obstructive pulmonary disease; Z99.2 Dependence on renal dialysis; K59.09 Other constipation; I95.89 Other hypotension; E83.42 Hypomagnesemia; I10 Essential (primary) hypertension; K29.70 Gastritis, unspecified, without bleeding; Z79.4 Long term (current) use of insulin; B96.83 Acinetobacter baumannii as the cause of diseases classified elsewhere; Z87.891 Personal history of nicotine dependence